=== PATIENT | male | born 1955 | race American Indian/Alaskan Native ===

== ENCOUNTER 2016-06-12 09:31 | Outpatient (CLI) | payer OTHER ==
[2016-06-12] MEDS ORDERED: XYLOCAINE TOPICAL 4% TP ONE ×3 (09:41→14:11)
== END 2016-06-12 09:32 | disposition home or self-care (01) ==
LOC: WOUND 09:31
PROVIDERS: ATTEND Nurse Practitioner
DX: E11.621 Type 2 diabetes mellitus with foot ulcer (principal); L97.521 Non-pressure chronic ulcer of other part of left foot limited to breakdown of skin; L97.511 Non-pressure chronic ulcer of other part of right foot limited to breakdown of skin; I89.0 Lymphedema, not elsewhere classified; E11.22 Type 2 diabetes mellitus with diabetic chronic kidney disease; I12.9 Hypertensive chronic kidney disease with stage 1 through stage 4 chronic kidney disease, or unspecified chronic kidney disease; N18.4 Chronic kidney disease, stage 4 (severe); M19.90 Unspecified osteoarthritis, unspecified site
CPT/HCPCS: 11042; G0463

== ENCOUNTER 2016-06-19 10:00 | Outpatient (CLI) | payer OTHER | END 2016-06-19 10:01 | disposition home or self-care (01) | LOC: WOUND 10:00 | PROVIDERS: ATTEND Nurse Practitioner | DX: I87.323 Chronic venous hypertension (idiopathic) with inflammation of bilateral lower extremity (principal); E11.621 Type 2 diabetes mellitus with foot ulcer; L97.511 Non-pressure chronic ulcer of other part of right foot limited to breakdown of skin; I89.0 Lymphedema, not elsewhere classified; F15.90 Other stimulant use, unspecified, uncomplicated; E11.22 Type 2 diabetes mellitus with diabetic chronic kidney disease; I13.10 Hypertensive heart and chronic kidney disease without heart failure, with stage 1 through stage 4 chronic kidney disease, or unspecified chronic kidney disease; N18.4 Chronic kidney disease, stage 4 (severe); Z72.89 Other problems related to lifestyle | CPT/HCPCS: 99214; G0463 ==

== ENCOUNTER 2016-09-01 12:55 | Outpatient (CLI) | payer OTHER ==
[2016-09-01] MEDS ORDERED: XYLOCAINE TOPICAL 4% TP ONE (13:41)
== END 2016-09-01 12:56 | disposition home or self-care (01) ==
LOC: WOUND 12:55
PROVIDERS: ATTEND Internal Medicine
DX: T81.31XA Disruption of external operation (surgical) wound, not elsewhere classified, initial encounter (principal); E11.622 Type 2 diabetes mellitus with other skin ulcer; I87.312 Chronic venous hypertension (idiopathic) with ulcer of left lower extremity; L97.821 Non-pressure chronic ulcer of other part of left lower leg limited to breakdown of skin; I87.2 Venous insufficiency (chronic) (peripheral); I89.0 Lymphedema, not elsewhere classified; N40.1 Benign prostatic hyperplasia with lower urinary tract symptoms; E11.22 Type 2 diabetes mellitus with diabetic chronic kidney disease; I12.9 Hypertensive chronic kidney disease with stage 1 through stage 4 chronic kidney disease, or unspecified chronic kidney disease; N18.4 Chronic kidney disease, stage 4 (severe); Y83.8 Other surgical procedures as the cause of abnormal reaction of the patient, or of later complication, without mention of misadventure at the time of the procedure
CPT/HCPCS: 11042; 87075; 87116; 97597; G0463

== ENCOUNTER 2016-09-08 10:47 | Outpatient (CLI) | payer OTHER ==
[2016-09-08] MEDS ORDERED: XYLOCAINE TOPICAL 4% TP ONE ×2 (12:08→12:11)
== END 2016-09-08 10:48 | disposition home or self-care (01) ==
LOC: WOUND 10:47
PROVIDERS: ATTEND Internal Medicine
DX: T81.89XD Other complications of procedures, not elsewhere classified, subsequent encounter (principal); I87.312 Chronic venous hypertension (idiopathic) with ulcer of left lower extremity; E11.622 Type 2 diabetes mellitus with other skin ulcer; L97.821 Non-pressure chronic ulcer of other part of left lower leg limited to breakdown of skin; E11.22 Type 2 diabetes mellitus with diabetic chronic kidney disease; I12.9 Hypertensive chronic kidney disease with stage 1 through stage 4 chronic kidney disease, or unspecified chronic kidney disease; N18.4 Chronic kidney disease, stage 4 (severe); Z72.89 Other problems related to lifestyle; Y83.8 Other surgical procedures as the cause of abnormal reaction of the patient, or of later complication, without mention of misadventure at the time of the procedure

== ENCOUNTER 2016-09-15 10:50 | Outpatient (CLI) | payer OTHER ==
[2016-09-15] MEDS ORDERED: XYLOCAINE TOPICAL 4% TP ONE ×2 (11:18)
[2016-09-15] MEDS ORDERED: SILVER NITRATE TP ONE ×2 (11:52→16:20)
== END 2016-09-15 10:51 | disposition home or self-care (01) ==
LOC: WOUND 10:50
PROVIDERS: ATTEND Internal Medicine
DX: T81.89XD Other complications of procedures, not elsewhere classified, subsequent encounter (principal); I87.312 Chronic venous hypertension (idiopathic) with ulcer of left lower extremity; E11.622 Type 2 diabetes mellitus with other skin ulcer; L97.821 Non-pressure chronic ulcer of other part of left lower leg limited to breakdown of skin; E11.22 Type 2 diabetes mellitus with diabetic chronic kidney disease; I12.9 Hypertensive chronic kidney disease with stage 1 through stage 4 chronic kidney disease, or unspecified chronic kidney disease; N18.4 Chronic kidney disease, stage 4 (severe); I89.0 Lymphedema, not elsewhere classified; Y83.8 Other surgical procedures as the cause of abnormal reaction of the patient, or of later complication, without mention of misadventure at the time of the procedure

== ENCOUNTER 2016-09-22 12:17 | Outpatient (CLI) | payer OTHER ==
[2016-09-22] MEDS ORDERED: XYLOCAINE TOPICAL 4% TP ONE ×2 (14:28→14:37)
== END 2016-09-22 12:18 | disposition home or self-care (01) ==
LOC: WOUND 12:17
PROVIDERS: ATTEND Internal Medicine
DX: T81.89XD Other complications of procedures, not elsewhere classified, subsequent encounter (principal); I87.312 Chronic venous hypertension (idiopathic) with ulcer of left lower extremity; L97.821 Non-pressure chronic ulcer of other part of left lower leg limited to breakdown of skin; E11.22 Type 2 diabetes mellitus with diabetic chronic kidney disease; I12.9 Hypertensive chronic kidney disease with stage 1 through stage 4 chronic kidney disease, or unspecified chronic kidney disease; N18.4 Chronic kidney disease, stage 4 (severe); I89.0 Lymphedema, not elsewhere classified; I10 Essential (primary) hypertension; M17.9 Osteoarthritis of knee, unspecified; Y83.8 Other surgical procedures as the cause of abnormal reaction of the patient, or of later complication, without mention of misadventure at the time of the procedure

== ENCOUNTER 2016-09-29 12:58 | Outpatient (CLI) | payer OTHER ==
[2016-09-29] MEDS ORDERED: XYLOCAINE TOPICAL 2% TP ONE (13:20)
[2016-09-29] MEDS ORDERED: XYLOCAINE TOPICAL 4% TP ONE (13:46)
== END 2016-09-29 12:59 | disposition home or self-care (01) ==
LOC: WOUND 12:58
PROVIDERS: ATTEND Internal Medicine
DX: T81.89XD Other complications of procedures, not elsewhere classified, subsequent encounter (principal); I87.312 Chronic venous hypertension (idiopathic) with ulcer of left lower extremity; N40.1 Benign prostatic hyperplasia with lower urinary tract symptoms; I87.2 Venous insufficiency (chronic) (peripheral); I50.9 Heart failure, unspecified; I89.0 Lymphedema, not elsewhere classified; E11.22 Type 2 diabetes mellitus with diabetic chronic kidney disease; I12.9 Hypertensive chronic kidney disease with stage 1 through stage 4 chronic kidney disease, or unspecified chronic kidney disease; N18.4 Chronic kidney disease, stage 4 (severe); Y83.8 Other surgical procedures as the cause of abnormal reaction of the patient, or of later complication, without mention of misadventure at the time of the procedure
CPT/HCPCS: 29581

== ENCOUNTER 2016-10-06 12:58 | Outpatient (CLI) | payer OTHER ==
[2016-10-06] MEDS ORDERED: XYLOCAINE TOPICAL 4% TP ONE ×2 (13:22→14:00)
== END 2016-10-06 12:59 | disposition home or self-care (01) ==
LOC: WOUND 12:58
PROVIDERS: ATTEND Internal Medicine
DX: T81.89XD Other complications of procedures, not elsewhere classified, subsequent encounter (principal); I87.312 Chronic venous hypertension (idiopathic) with ulcer of left lower extremity; L97.821 Non-pressure chronic ulcer of other part of left lower leg limited to breakdown of skin; E11.22 Type 2 diabetes mellitus with diabetic chronic kidney disease; I12.9 Hypertensive chronic kidney disease with stage 1 through stage 4 chronic kidney disease, or unspecified chronic kidney disease; N18.4 Chronic kidney disease, stage 4 (severe); I89.0 Lymphedema, not elsewhere classified; M17.9 Osteoarthritis of knee, unspecified; Y83.8 Other surgical procedures as the cause of abnormal reaction of the patient, or of later complication, without mention of misadventure at the time of the procedure

== ENCOUNTER 2016-10-13 13:02 | Outpatient (CLI) | payer OTHER ==
[2016-10-13] MEDS ORDERED: XYLOCAINE TOPICAL 4% TP ONE ×2 (13:34→13:49)
== END 2016-10-13 13:03 | disposition home or self-care (01) ==
LOC: WOUND 13:02
PROVIDERS: ATTEND Internal Medicine
DX: T81.89XD Other complications of procedures, not elsewhere classified, subsequent encounter (principal); I87.312 Chronic venous hypertension (idiopathic) with ulcer of left lower extremity; L97.821 Non-pressure chronic ulcer of other part of left lower leg limited to breakdown of skin; E11.22 Type 2 diabetes mellitus with diabetic chronic kidney disease; I12.9 Hypertensive chronic kidney disease with stage 1 through stage 4 chronic kidney disease, or unspecified chronic kidney disease; N18.4 Chronic kidney disease, stage 4 (severe); I89.0 Lymphedema, not elsewhere classified; Y83.8 Other surgical procedures as the cause of abnormal reaction of the patient, or of later complication, without mention of misadventure at the time of the procedure
CPT/HCPCS: 93970

== ENCOUNTER 2016-10-13 14:35 | Outpatient (CLI) | payer OTHER ==
--- NOTE | 2016-10-14 16:05 | Vascular Lab Report ---
LOWER EXTREMITY VENOUS DUPLEX: REASON FOR EXAM: Pain of the lower extremities. COMMENTS ON THE RIGHT: All veins visualized are freely compressible without evidence of internal echogenicity. Flow is spontaneous and phasic throughout. COMMENTS ON THE LEFT: All veins visualized are freely compressible without evidence of internal echogenicity. Flow is spontaneous and phasic throughout. IMPRESSION: No evidence of acute or chronic deep venous thrombosis in either lower extremity.
== END 2016-10-13 14:36 | disposition home or self-care (01) ==
LOC: VAS 14:35
PROVIDERS: ATTEND Internal Medicine
DX: M79.604 Pain in right leg (principal); M79.605 Pain in left leg; I10 Essential (primary) hypertension; E11.9 Type 2 diabetes mellitus without complications; N17.9 Acute kidney failure, unspecified; D64.9 Anemia, unspecified
CPT/HCPCS: 93970

== ENCOUNTER 2016-10-20 13:04 | Outpatient (CLI) | payer OTHER ==
[2016-10-20] MEDS ORDERED: XYLOCAINE TOPICAL 2% TP ONE ×2 (13:48)
== END 2016-10-20 13:05 | disposition home or self-care (01) ==
LOC: WOUND 13:04
PROVIDERS: ATTEND Internal Medicine
DX: T81.89XD Other complications of procedures, not elsewhere classified, subsequent encounter (principal); I87.312 Chronic venous hypertension (idiopathic) with ulcer of left lower extremity; L97.821 Non-pressure chronic ulcer of other part of left lower leg limited to breakdown of skin; E11.622 Type 2 diabetes mellitus with other skin ulcer; E11.22 Type 2 diabetes mellitus with diabetic chronic kidney disease; I12.9 Hypertensive chronic kidney disease with stage 1 through stage 4 chronic kidney disease, or unspecified chronic kidney disease; N18.4 Chronic kidney disease, stage 4 (severe); I89.0 Lymphedema, not elsewhere classified; Y83.8 Other surgical procedures as the cause of abnormal reaction of the patient, or of later complication, without mention of misadventure at the time of the procedure

== ENCOUNTER 2016-10-20 14:44 | Inpatient (IN) | payer OTHER ==
--- NOTE | 2016-10-20 15:32 | Emergency Department Report ---
Chief Complaint: Dyspnea/Respdistress Stated Complaint: REF BY WOUND CARE/ABD SWELLING/SOB Time Seen by Provider: 10/20/16 15:30 - HPI History of Present Illness: pt states he was at the wound care center and he was found to be SOB. PT sent to ED for eval - ROS Review of Systems: + lower ext edema + sob - Exam Physical Exam: + ble edema. dressing to LLE MSE screening note: Focused history and physical exam performed. Due to findings the following was ordered: labs, ekg, xr chest ED Disposition for MSE Condition: Stable
[2016-10-20 15:54] LABS: Basophils % (Auto) 0.9 % (0.0-1.8); Eosinophils % (Auto) 2.4 % (0.0-4.3); Hematocrit 22.5 % (35.5-45.6); Hemoglobin 7.1 gm/dl (11.8-15.2); Mean Corpuscular HGB Conc 32 % (32-34); Mean Corpuscular Volume 81 fl (84-94); Platelet Count 193 K/mm3 (140-440); Red Blood Count 2.77 M/mm3 (3.65-5.03); White Blood Count 9.4 K/mm3 (4.5-11.0)
[2016-10-20 15:55] LABS: Mean Corpuscular Hemoglobin 26 pg (28-32)
[2016-10-20 16:04] LABS: INR 1.12 (0.87-1.13)
[2016-10-20 16:05] LABS: Partial Thromboplastin Time 31.5 Sec. (24.2-36.6)
[2016-10-20 16:17] LABS: Creatine Kinase MB 2.6 ng/mL (0.0-4.0)
[2016-10-20 16:18] LABS: Albumin 3.2 g/dL (3.9-5); Albumin/Globulin Ratio 0.9 %; BUN/Creatinine Ratio 17.22; Bilirubin,Total 0.2 mg/dL (0.1-1.2); Calcium 8.6 mg/dL (8.4-10.2); Chloride 105.3 mmol/L (98-107); Potassium 4.7 mmol/L (3.6-5.0); Total Protein 6.8 g/dL (6.3-8.2)
--- NOTE | 2016-10-20 16:24 | XRay Report ---
CHEST 2 VIEWS INDICATION: Dyspnea. COMPARISON: 08/19/2016 FINDINGS: PA and lateral chest radiographs demonstrate stable cardiomediastinal silhouette/mild cardiomegaly. Slight increased bronchovascular prominence centrally may be congestive. No significant pleural effusions. Slight aortic knob calcifications. Demineralized bones with few degenerative changes. CONCLUSION: Cardiomegaly again noted with slight congestion possible, as described. Please correlate. Thank you for the opportunity to participate in this patient's care.
[2016-10-20] MEDS ORDERED: LASIX IV ONE (21:04)
--- NOTE | 2016-10-20 21:09 | Emergency Department Report ---
ED Shortness of Breath HPI - General Chief Complaint: Dyspnea/Respdistress Stated Complaint: REF BY WOUND CARE/ABD SWELLING/SOB Time Seen by Provider: 10/20/16 15:30 Source: patient Mode of arrival: Ambulatory Limitations: No Limitations - History of Present Illness Initial Comments: Patient was sent from his primary care physician office for increased shortness of breath and generalized swelling starting them on for 4 weeks getting worse in the last 2-3 days. Patient does have history of chronic kidney disease and never diagnosed with congestive heart failure. He stated that he's been having shortness of breath when he woke and when he laid down to sleep. Denied any fever nausea or vomiting or diarrhea. MD Complaint: shortness of breath -: Gradual, week(s) Consistency: constant Improves With: rest Worsens With: lying flat, exertion - Related Data Home Medications Medication Instructions Recorded Confirmed Last Taken Acetaminophen/Codeine [Tylenol 1 tab PO QDAY 08/11/16 08/11/16 Unknown /Codeine # 3 tab] Furosemide [Lasix TAB] 40 mg PO BID 08/11/16 08/11/16 Unknown Insulin Glargine,Hum.rec.anlog 60 units SC QHS 08/11/16 08/11/16 Unknown [Lantus Solostar] Naproxen [Naprosyn TAB] 500 mg PO BID 08/11/16 08/11/16 Unknown Valsartan [Diovan] 320 mg PO QDAY 08/11/16 08/11/16 Unknown Previous Rx's Medication Instructions Recorded Last Taken Type Atenolol [Tenormin] 25 mg PO QDAY #30 tablet 08/19/16 Unknown Rx Bisacodyl [Dulcolax suppos] 10 mg [place] QDAY PRN #30 supp.rect 08/19/16 Unknown Rx Clonidine HCl [Kapvay] 0.2 mg PO TID #90 tab.er.12h 08/19/16 Unknown Rx Ferrous Sulfate [Feosol 325 MG tab] 325 mg PO BID #60 tablet 08/19/16 Unknown Rx Metolazone [Zaroxolyn] 5 mg PO Q48H #15 tablet 08/19/16 Unknown Rx NIFEdipine [Nifedipine ER] 60 mg PO QDAY #30 tab.er.24 08/19/16 Unknown Rx Polyethylene Glycol 3350 [Miralax 17 gm PO QDAY PRN #30 powd.pack 08/19/16 Unknown Rx 3350] hydrALAZINE [Apresoline TAB] 100 mg PO TID #90 tab 08/19/16 Unknown Rx oxyCODONE /ACETAMINOPHEN [Percocet 1 tab PO Q4HR #25 tab 08/19/16 Unknown Rx 5/325] Allergies Allergy/AdvReac Type Severity Reaction Status Date / Time No Known Allergies Allergy Unverified 03/09/15 08:34 ED Review of Systems ROS: Stated complaint: REF BY WOUND CARE/ABD SWELLING/SOB Other details as noted in HPI Comment: All other systems reviewed and negative Constitutional: denies: chills, fever Respiratory: cough, orthopnea, shortness of breath, SOB with exertion, SOB at rest. denies: stridor Cardiovascular: dyspnea on exertion, orthopnea, edema. denies: chest pain, palpitations Endocrine: denies: excessive sweating, intolerance to cold Neurological: weakness (generalized). denies: headache ED Past Medical Hx - Past Medical History Previous Medical History?: Yes Hx Hypertension: Yes (multiple meds on cardene in hosp; labetolol given as needed) Hx Diabetes: Yes Hx Renal Disease: Yes (acute renal failure - CKD prior to hospitilization) - Surgical History Past Surgical History?: Yes Hx Appendectomy: Yes - Social History Smoking Status: Never Smoker Substance Use Type: None - Medications Home Medications: Home Medications Medication Instructions Recorded Confirmed Last Taken Type Acetaminophen/Codeine [Tylenol 1 tab PO QDAY 08/11/16 08/11/16 Unknown History /Codeine # 3 tab] Furosemide [Lasix TAB] 40 mg PO BID 08/11/16 08/11/16 Unknown History Insulin Glargine,Hum.rec.anlog 60 units SC QHS 08/11/16 08/11/16 Unknown History [Lantus Solostar] Naproxen [Naprosyn TAB] 500 mg PO BID 08/11/16 08/11/16 Unknown History Valsartan [Diovan] 320 mg PO QDAY 08/11/16 08/11/16 Unknown History Atenolol [Tenormin] 25 mg PO QDAY #30 tablet 08/19/16 Unknown Rx Bisacodyl [Dulcolax suppos] 10 mg [place] QDAY PRN #30 supp.rect 08/19/16 Unknown Rx Clonidine HCl [Kapvay] 0.2 mg PO TID #90 tab.er.12h 08/19/16 Unknown Rx Ferrous Sulfate [Feosol 325 MG tab] 325 mg PO BID #60 tablet 08/19/16 Unknown Rx Metolazone [Zaroxolyn] 5 mg PO Q48H #15 tablet 08/19/16 Unknown Rx NIFEdipine [Nifedipine ER] 60 mg PO QDAY #30 tab.er.24 08/19/16 Unknown Rx Polyethylene Glycol 3350 [Miralax 17 gm PO QDAY PRN #30 powd.pack 08/19/16 Unknown Rx 3350] hydrALAZINE [Apresoline TAB] 100 mg PO TID #90 tab 08/19/16 Unknown Rx oxyCODONE /ACETAMINOPHEN [Percocet 1 tab PO Q4HR #25 tab 08/19/16 Unknown Rx 5/325] ED Physical Exam - General Limitations: No Limitations General appearance: alert, in no apparent distress - Neck Neck exam: Present: normal inspection - Respiratory Respiratory exam: Present: rales, decreased breath sounds. Absent: respiratory distress, wheezes, rhonchi, stridor - Cardiovascular Cardiovascular Exam: Present: regular rate, normal rhythm, normal heart sounds - GI/Abdominal GI/Abdominal exam: Present: soft. Absent: distended, tenderness, guarding, rebound, normal bowel sounds - Back Exam Back exam: Present: normal inspection - Neurological Exam Neurological exam: Present: alert, oriented X3, CN II-XII intact, normal gait, reflexes normal. Absent: motor sensory deficit - Skin Skin exam: Present: warm, normal color ED Course Vital Signs 10/20/16 10/20/16 15:31 21:09 Temperature 97.8 F Pulse Rate 51 L Respiratory 16 18 Rate Blood Pressure 135/64 O2 Sat by Pulse 97 Oximetry - Reevaluation(s) Reevaluation #1: 10/20/16 21:[address] Paz for admission. 10/20/16 21:27 ED Medical Decision Making - Lab Data Result diagrams: 10/20/16 15:38 10/20/16 15:38 - EKG Data EKG shows normal: sinus rhythm Rate: normal - EKG Data Interpretation: no acute changes - Radiology Data Radiology results: report reviewed Pulmonary congestion Critical care attestation.: If time is entered above; I have spent that time in minutes in the direct care of this critically ill patient, excluding procedure time. ED Disposition Clinical Impression: Volume overload Disposition: 09 OP ADMIT IP TO THIS HOSP Is pt being admited?: Yes Condition: Stable Referrals: PRIMARY CARE, [Primary Care Provider] - 3-5 Days
[2016-10-20] MEDS ORDERED: MORPHINE IV PRN (22:03)
[2016-10-20] MEDS ORDERED: NITROSTAT SL PRN (22:03)
[2016-10-20] MEDS ORDERED: MIRALAX 3350 PO PRN (22:07)
[2016-10-20] MEDS ORDERED: DULCOLAX PR PRN (22:07)
[2016-10-20] MEDS ORDERED: D50W (25GM) Syringe IV PRN (22:25)
[2016-10-20] MEDS: COREG PO SCH (23:28)
[2016-10-20] MEDS: APRESOLINE PO SCH (23:28)
[2016-10-20] MEDS: CATAPRES PO SCH (23:29)
[2016-10-20] MEDS: HEPARIN SUB-Q SCH (23:30)
[2016-10-20] MEDS: NITRO-BID 2% TP SCH (23:30)
[2016-10-20] MEDS: LEVEMIR SUB-Q SCH (23:37)
--- NOTE | 2016-10-21 00:24 | History and Physical Report ---
CHIEF COMPLAINT: Shortness of breath. Other complaint includes generalized body swelling. HISTORY OF PRESENT ILLNESS: The patient is a 61-year-old male, who recently had appendectomy done and went for wound care and was sent over because of generalized body swelling. Also, the patient said his swelling has been going on for 4 weeks and recently, the patient started having shortness of breath in the last 2-3 days and denied history of chest pain. Denied history of cough, fever, or chills and also the patient denies history of nausea or vomiting and said that the generalized body swelling involves more of the lower extremities than any other part of the body. The patient has been taking Lasix by mouth and also metolazone for this increased swelling. PAST MEDICAL HISTORY: Pertinent for chronic kidney disease, hypertension, and diabetes mellitus. Also, the patient has past medical history of sleep apnea. PAST SURGICAL HISTORY: Pertinent for appendectomy. FAMILY HISTORY: Noncontributory. SOCIAL HISTORY: The patient does not smoke, does not drink alcohol and does not use illicit drugs. MEDICATIONS: The patient is on Tylenol by mouth daily, furosemide or Lasix 40 mg by mouth twice daily, Lantus insulin 60 units subQ at bedtime, naproxen 500 mg by mouth twice daily, Diovan or valsartan 320 mg by mouth daily, atenolol 25 mg by mouth daily, Dulcolax suppository 10 mg 1 per rectum daily, clonidine 0.2 mg p.o. t.i.d., ferrous sulfate 325 mg p.o. b.i.d., metolazone, Zaroxolyn 5 mg p.o. q.48 hours, nifedipine 60 mg p.o. daily, polyethylene glycol 17 grams p.o. daily, hydralazine 100 mg p.o. t.i.d., Percocet or oxycodone/acetaminophen 5/325 one by mouth every 4 hours as needed for pain. ALLERGIES: There are no known drug allergies. REVIEW OF SYSTEMS: CONSTITUTIONAL: There is no fever, no chills, no diaphoresis. HEENT: There is no headache or sore throat. CARDIOVASCULAR: There is no chest pain or orthopnea. RESPIRATORY: Shortness of breath present. No cough. GASTROINTESTINAL: No nausea, no vomiting, no abdominal pain, diarrhea or constipation. NEUROLOGICAL: There is no numbness, no dizziness, no altered mental status. MUSCULOSKELETAL: There is swelling of the whole body, more in the lower extremities involving the joint. There is no joint pain. DERMATOLOGICAL: There is no skin rash or itching. GENITOURINARY: There is a history of dysuria, but no hematuria or flank pain. Rest of system review is normal. PHYSICAL EXAMINATION: GENERAL: At the time of exam, the patient was found to be alert, oriented x 3 and not in acute distress. VITAL SIGNS: Shows temperature of 98.1, pulse of 66, respirations of 16, blood pressure 189/75, and O2 sat of 97% on room air. HEENT: Showed pupils to be equal, round, reactive to light and accommodation. Extraocular muscles are intact. NECK: Supple with no JVD or carotid bruit. CARDIOVASCULAR SYSTEM: Show first and second heart sounds with no gallops or murmur. EXTREMITIES: The patient has 2+ pitting edema. RESPIRATORY: Show good air entry on both sides of the lung with bibasilar rales. GASTROINTESTINAL SYSTEM: Show abdomen to be full, soft, nontender with no organomegaly or rigidity. NEUROLOGIC: Shows no focal deficit. MUSCULOSKELETAL: Show swelling of the whole body, especially in the lower extremities with no joint tenderness. DERMATOLOGICAL SYSTEM: Show no skin rash. GENITOURINARY: Show no costovertebral angle tenderness. PERTINENT LABORATORY AND IMAGING STUDIES: The patient had CBC done that shows normal white count with low hemoglobin of 7.1 and low hematocrit of 22.5 with low MCV of 81. CBC differential showed elevated segmented neutrophils of 74.1%. Coagulation study show slightly elevated PT of 15 with normal INR. Chemistry shows normal sodium, normal potassium, elevated BUN of 62 with elevated creatinine of 3.6. The patient's troponin level was high with a value of 0.049 and a second troponin showed a slight downward trend of 0.047. Brain natriuretic peptide is high with a value of 1954. IMAGING STUDIES: The patient had chest x-ray done that shows pulmonary congestion. DIAGNOSES: 1. Congestive heart failure. 2. Chronic kidney disease. 3. Elevated troponin level. 4. Anemia. PLAN: The patient will be admitted to medical floor on telemetry. We will have cardiac enzymes checked q. 6 hours x 2 more levels. The patient will have 2D echo done in the morning and will be admitted using CHF pathway. He will be on IV Lasix 40 mg daily. The patient will have packed red blood cells typed and screened and will have CBC checked in the morning as well as basic metabolic panel checked in the morning. The patient will have Nephrology consult with his part maker, Dr. Hearn in the morning and will be on nitro paste 1 inch to anterior chest wall q.6 hours. The patient will be on aspirin 81 mg by mouth daily and will be on oxygen by nasal cannula at 2 liter per minute. The patient's DVT prophylaxis will be through subcutaneous heparin 5000 units q.12 hours. The patient will have his home medications reconciled and started. The patient will be on Accu-Chek a.c. and at bedtime, followed by low dose sliding scale and also will be on restrictive carbohydrate diet and 2 g sodium diet. JOB# [id number] OCN/APRYL ERNST
[2016-10-21 01:15] LABS: Creatine Kinase MB 2.5 ng/mL (0.0-4.0)
[2016-10-21] MEDS: NITRO-BID 2% TP SCH ×4 (05:39→18:00)
[2016-10-21 06:37] LABS: Hemoglobin 7.5 gm/dl (11.8-15.2); Mean Corpuscular HGB Conc 31 % (32-34); Mean Corpuscular Volume 82 fl (84-94); Platelet Count 207 K/mm3 (140-440); Red Blood Count 2.95 M/mm3 (3.65-5.03); White Blood Count 10.2 K/mm3 (4.5-11.0)
[2016-10-21 06:38] LABS: Mean Corpuscular Hemoglobin 26 pg (28-32); Red Cell Distribution Width 20.6 % (13.2-15.2)
--- NOTE | 2016-10-21 07:51 | Admit Criteria Form ---
Admission Criteria Documentation: RESPIRATORY FAILURE GRG Clinical Indications for Admission to Inpatient Care (Place 'X' for any and all applicable criteria): Hospital admission is needed for appropriate care of the patient because of acute respiratory failure or insufficiency as indicated by 1 or more of the following (1)(2)(3)(4)(5)(6)(7)(8 ): [X ]I. Mechanical ventilation needed (acute invasive or noninvasive) [ ]II. Severe ventilation deficit as indicated by 1 or more of the following ( 9) [ ]a) Uncompensated Respiratory acidosis (pH < 7.35 and PaCO2 > 40 mmHg (5.3 kPa)) [ ]b) Airflow measurements < 25% of predicted (eg, PEFR < 100 L/min) [ ]c) FVC < 15 mL/kg of ideal body weight, or 50% decrease in vital capacity from baseline [ ]III. Noncardiac pulmonary edema not resolving with rapid emergency treatment (8) [ ]IV. Severe respiratory distress as indicated by 1 or more of the following: [ ]a) Severe tachypnea (respiratory rate greater than 30, greater than 45 for 6-month-old, greater than 60 for ) [ ]b) Severe hypoxemia (partial pressure of oxygen less than 50 mm Hg ( 6.7 kPa) on greater than 50% oxygen or partial pressure of oxygen to FIO2 ratio less than 200) [ ]c) Mental status deterioration from respiratory disease [ ]V. Airway obstruction or inadequate protection [A](10)(11) The original [employer] content created by [employer] has been revised. The portions of the content which have been revised are identified through the use of italic text or in bold, and [employer] has neither reviewed nor approved the modified material. All other unmodified content is copyright [employer]. Please see references footnoted in the original [employer] edition 2017 Admission Criteria Met: Yes
[2016-10-21] MEDS ORDERED: CLONIDINE HCL 0.2 MG PO SCH (08:00)
[2016-10-21 08:15] LABS: BUN/Creatinine Ratio 18.75; Calcium 8.6 mg/dL (8.4-10.2); Chloride 107.1 mmol/L (98-107); Potassium 4.5 mmol/L (3.6-5.0)
[2016-10-21] MEDS: ULTRAM PO SCH ×3 (08:33→22:31)
[2016-10-21] MEDS: APRESOLINE PO SCH ×3 (08:33→20:49)
[2016-10-21] MEDS: CATAPRES PO SCH ×3 (08:33→20:49)
--- NOTE | 2016-10-21 09:57 | Consultation ---
History of Present Illness - History of Present Illness Thank you for the consultation Patient was evaluated today Assessment and plan Advanced renal failure. The patient is currently being followed in our clinic by Dr. Nielson patient likely appears to have stage IV chronic kidney disease presenting with significant swelling, edema, which has been worsening./Patient has been noted to have very poor diet and lifestyle which needs to be changed. There is no acute emergent indication for renal replacement therapy here moderately severe anemia patient does require full workup including iron profile B12 folic acid reticulocyte count and erythropoietin injection, He may also benefit from hematology evaluation and packed red blood cell transfusion Creatinine is currently better than his previous visit Anasarca-like picture.would like to diurese as tolerated. Follow We'll assess the degree of proteinuria and his case Moderately severe anemia likely due to chronic kidney disease. However, this needs to be further worked up. He will also benefit from hematology evaluation Metabolic acidosis Ejection fraction has been in the range of 65-70% We'll continue to follow and make recommendation from renal standpoint History of presenting illness: Patient is a pleasant 61-year-old -[place] male who is currently being followed by Dr. Nielson in the office. Patient has known history of chronic kidney disease likely stage IV creatinine currently is better than his previous visit. The patient does not recall the degree of proteinuria that he had in the past. His eating habits have an extremely poor.. Patient does not use any follow-up nonsteroidal drug a follow-up BC goodies. Denies any history of hepatitis B C HIV lupus etc.. Leg swelling has been getting worse to the point it is also getting short of breath. Above symptoms have been present for last 4- 5 weeks but possibly did get worse and last 4-5 day. Upon admission creatinine was 3.6 with the [place] of 62 hemoglobin 7.1 with hematocrit 22.5 bicarbonate was around 20 blood pressure was around 130s systolic with pulse rate in 50s. Ejection fraction (the range of 60-65%. She is also currently being followed by wound clinic Past medical history is significant for: hypertension Chronic kidney disease Edema Congestive heart failure Leg wound sleep apnea Current allergies:no known allergies Home medication present medications: Reviewed Social history:denies any history of alcohol drug tobacco use Family history:denies any history of renal failure Review of system positive for progressive weakness and lies swelling fatigue and chest discomfort shortness of breath Other review of systems were negative Physical examination Vitals: Reviewed from this admission General: No acute distress HEENT: Oral mucosa moist no uremic order mild pallor no icterus Neck: No thyromegaly nodular mass or JVD noted Chest: bilateral crackles and wheezes Heart: Regular rhythm S1-S2 heard no S3-S4 Abdomen: Nontender no organomegaly no masses no renal bruit no suprapubic masses noted Extremities: 2+ generalized edema No peripheral cyanosis dry skin pulses palpable Endocrine: No thyromegaly noted Psych; no agitation or aggression noted Back: Nontender thoracolumbar spine Musculoskeletal: No joint effusion noted Neurological: Alert awake follows commands higher function including speech memory thought cognition within normal limits Labs and x-rays: All were reviewed from this admission on chart today Assessment and plan; Patient was adequately counseled and educated regarding all the renal related issues All questions were answered pertinent to renal care Thank you for the consultation, we will continue to follow and make recommendation from renal standpoint Medications and Allergies Allergies Allergy/AdvReac Type Severity Reaction Status Date / Time No Known Allergies Allergy Unverified 03/09/15 08:34 Home Medications Medication Instructions Recorded Confirmed Last Taken Type Acetaminophen/Codeine [Tylenol 1 tab PO QDAY 08/11/16 10/20/16 Unknown History /Codeine # 3 tab] Furosemide [Lasix TAB] 40 mg PO BID 08/11/16 10/20/16 Unknown History Insulin Glargine,Hum.rec.anlog 60 units SC QHS 08/11/16 10/20/16 Unknown History [Lantus Solostar] Naproxen [Naprosyn TAB] 500 mg PO BID 08/11/16 10/20/16 Unknown History Valsartan [Diovan] 320 mg PO QDAY 08/11/16 10/20/16 Unknown History Atenolol [Tenormin] 25 mg PO QDAY #30 tablet 08/19/16 10/20/16 Unknown Rx Bisacodyl [Dulcolax suppos] 10 mg [place] QDAY PRN #30 supp.rect 08/19/16 10/20/16 Unknown Rx Clonidine HCl [Kapvay] 0.2 mg PO TID #90 tab.er.12h 08/19/16 10/20/16 Unknown Rx Ferrous Sulfate [Feosol 325 MG tab] 325 mg PO BID #60 tablet 08/19/16 10/20/16 Unknown Rx Metolazone [Zaroxolyn] 5 mg PO Q48H #15 tablet 08/19/16 10/20/16 Unknown Rx Polyethylene Glycol 3350 [Miralax 17 gm PO QDAY PRN #30 powd.pack 08/19/1610/20 Unknown Rx 3350] hydrALAZINE [Apresoline TAB] 100 mg PO TID #90 tab 08/19/16 10/20/16 Unknown Rx oxyCODONE /ACETAMINOPHEN [Percocet 1 tab PO Q4HR #25 tab 08/19/16 10/20/16 Unknown Rx 5/325] Ascorbic Acid [Vitamin C] 500 mg PO QDAY 10/20/16 10/20/16 Unknown History AtorvaSTATin [Lipitor] 20 mg PO QDAY 10/20/16 10/20/16 Unknown History Cholecalciferol (Vitamin D3) 2,000 units PO QDAY 10/20/16 10/20/16 Unknown History [Vitamin D3 2,000 unit] Multivit-Min/Iron/FA/Ginseng [Ra 1 tab PO QDAY 10/20/16 10/20/16 Unknown History [employer] Tablet] NIFEdipine XL [Procardia Xl] 90 mg PO QDAY 10/20/16 10/20/16 Unknown History Tamsulosin [Flomax] 0.4 mg PO QDAY 10/20/16 10/20/16 Unknown History Zinc Acetate [Galzin] 50 mg PO QDAY 10/20/16 10/20/16 Unknown History traMADol [Ultram 50 MG tab] 50 mg PO TID 10/20/16 10/20/16 Unknown History Active Meds: Active Medications Ascorbic Acid (Vitamin C) 500 mg PO QDAY [facility] Aspirin (Baby Aspirin) 81 mg PO QDAY [facility] Atorvastatin Calcium (Lipitor) 20 mg PO QDAY [facility] Bisacodyl (Dulcolax) 10 mg [place] QDAY PRN PRN Reason: constipation unrelieved by MOM Carvedilol (Coreg) 3.125 mg PO BID [facility] Last Admin: 10/20/16 23:28 Dose: 3.125 mg Cholecalciferol (Vitamin D3) 2,000 unit PO QDAY [facility] Clonidine HCl (Catapres) 0.2 mg PO TID [facility] Last Admin: 10/21/16 08:33 Dose: 0.2 mg Dextrose (D50w (25gm)) 50 ml IV PRN PRN PRN Reason: Hypoglycemia Ferrous Sulfate (Feosol) 325 mg PO BID [facility] Furosemide (Lasix) 40 mg IV QDAY [facility] Heparin Sodium (Porcine) (Heparin) 5,000 unit SUB-Q Q12HR [facility] Last Admin: 10/20/16 23:30 Dose: 5,000 unit Hydralazine HCl (Apresoline) 100 mg PO TID [facility] Last Admin: 10/21/16 08:33 Dose: 100 mg Insulin Detemir (Levemir) 60 units SUB-Q QHS [facility] Last Admin: 10/20/16 23:37 Dose: 60 units Insulin Human Regular (Novolin R) 0 units SUB-Q AC [facility] PRN Reason: Protocol Last Admin: 10/21/16 08:34 Dose: Not Given Insulin Human Regular (Novolin R) 0 units SUB-Q QHS [facility] PRN Reason: Protocol Metolazone (Zaroxolyn) 5 mg PO Q48HR [facility] Morphine Sulfate (Morphine) 2 mg IV Q5MIN PRN PRN Reason: Chest Pain Nitroglycerin (Nitrostat) 0.4 mg SL .Q5MIN PRN PRN Reason: Chest Pain Nitroglycerin (Nitro-Bid 2%) 1 inch TP QIDNTG [facility] PRN Reason: Protocol Last Admin: 10/21/16 05:39 Dose: 1 inch Polyethylene Glycol (Miralax 3350) 17 gm PO QDAY PRN PRN Reason: Constipation Tamsulosin HCl (Flomax) 0.4 mg PO QDAY [facility] Tramadol HCl (Ultram) 50 mg PO TID [facility] Last Admin: 10/21/16 08:33 Dose: 50 mg Valsartan (Diovan) 320 mg PO QDAY [facility] Exam - Vital Signs Vital signs: Vital Signs Temp Pulse Resp BP Pulse Ox 97.8 F 51 L 16 135/64 97 10/20/16 15:31 10/20/16 15:31 10/20/16 15:31 10/20/16 15:31 10/20/16 15:31 Results - Lab Results 10/21/16 06:21 10/21/16 06:21 Most recent lab results Calcium 8.6 mg/dL (8.4-10.2) 10/21/16 06:21
[2016-10-21] MEDS ORDERED: NON-FORMULARY (Valsartan [Diovan] 320 MG) PO SCH (10:00)
[2016-10-21] MEDS ORDERED: CHOLECALCIFEROL 2000 UNIT PO SCH (10:00)
[2016-10-21] MEDS: FEOSOL PO SCH ×2 (10:18→22:31)
[2016-10-21] MEDS: BABY ASPIRIN PO SCH (10:19)
[2016-10-21] MEDS: VITAMIN D3 PO SCH (10:19)
[2016-10-21] MEDS: DIOVAN PO SCH (10:19)
[2016-10-21] MEDS: COREG PO SCH ×2 (10:19→22:32)
[2016-10-21] MEDS: ZAROXOLYN PO SCH (10:19)
[2016-10-21] MEDS: LASIX IV SCH (10:20)
[2016-10-21] MEDS: FLOMAX PO SCH (10:20)
[2016-10-21] MEDS: VITAMIN C PO SCH (10:20)
[2016-10-21] MEDS: HEPARIN SUB-Q SCH ×2 (10:20→22:33)
--- NOTE | 2016-10-21 12:47 | Progress Note ---
Assessment and Plan Assessment and plan: Acute diastolic heart failure. On Coreg, Erika and Xi, cardiology following Chronic kidney disease. Nephrology following Diabetes mellitus type 2. Check fingerstick glucose Qac and hs Hypertension. Monitor Sleep apnea. CPAP QHS Morbid obesity. I counseled him on losing weight Anemia Elevated Troponin. Will monitor. Cardiology following Full code status History Interval history: Less shortness of breath, leg swelling no chest pain Hospitalist Physical - Physical exam Narrative exam: Gen appearance: Not in acute distress, morbidly obese HEENT: normocephalic, atraumatic Neck: supple, Lungs: Bibasilar crackles.no wheezes Heart :S1 and S2 regular, no murmurs, rubs or gallop Abdomen: Soft, Non tender, non distended, bowel sounds present Extremities : Bilateral lower ext edema. no cyanosis, no clubbing, leg ulcer Neuro: AAO x 3, no focal neurological signs Psych:normal mood - Constitutional Vitals: Temp Pulse Resp BP Pulse Ox 98.1 F 60 22 199/94 98 10/21/16 07:50 10/21/16 07:50 10/21/16 07:50 10/21/16 08:33 10/21/16 12:06 Results - Labs CBC & Chem 7: 10/22/16 05:01 10/22/16 05:01 Labs: Laboratory Last Values WBC 10.2 K/mm3 (4.5-11.0) 10/21/16 06:21 RBC 2.95 M/mm3 (3.65-5.03) L 10/21/16 06:21 Hgb 7.5 gm/dl (11.8-15.2) L 10/21/16 06:21 Hct 24.0 % (35.5-45.6) L 10/21/16 06:21 MCV 82 fl (84-94) L 10/21/16 06:21 MCH 26 pg (28-32) L 10/21/16 06:21 MCHC 31 % (32-34) L 10/21/16 06:21 RDW 20.6 % (13.2-15.2) H 10/21/16 06:21 Plt Count 207 K/mm3 (140-440) 10/21/16 06:21 Lymph % (Auto) 14.8 % (13.4-35.0) 10/20/16 15:38 Gillespie % (Auto) 7.8 % (0.0-7.3) H 10/20/16 15:38 Eos % (Auto) 2.4 % (0.0-4.3) 10/20/16 15:38 Baso % (Auto) 0.9 % (0.0-1.8) 10/20/16 15:38 Lymph # 1.4 K/mm3 (1.2-5.4) 10/20/16 15:38 Gillespie # 0.7 K/mm3 (0.0-0.8) 10/20/16 15:38 Eos # 0.2 K/mm3 (0.0-0.4) 10/20/16 15:38 Baso # 0.1 K/mm3 (0.0-0.1) 10/20/16 15:38 Seg Neutrophils % 74.1 % (40.0-70.0) H 10/20/16 15:38 Seg Neutrophils # 6.9 K/mm3 (1.8-7.7) 10/20/16 15:38 PT 15.0 Sec. (12.2-14.9) H 10/20/16 15:38 INR 1.12 (0.87-1.13) 10/20/16 15:38 APTT 31.5 Sec. (24.2-36.6) 10/20/16 15:38 Sodium 142 mmol/L (137-145) 10/21/16 06:21 Potassium 4.5 mmol/L (3.6-5.0) 10/21/16 06:21 Chloride 107.1 mmol/L (98-107) H 10/21/16 06:21 Carbon Dioxide 19 mmol/L (22-30) L 10/21/16 06:21 Anion Gap 20 mmol/L 10/21/16 06:21 BUN 60 mg/dL (9-20) H 10/21/16 06:21 Creatinine 3.2 mg/dL (0.8-1.5) H 10/21/16 06:21 Estimated GFR 24 ml/min 10/21/16 06:21 BUN/Creatinine Ratio 18.75 % 10/21/16 06:21 Glucose 96 mg/dL (75-100) 10/21/16 06:21 POC Glucose 146 (70-105) H 10/21/16 12:17 Calcium 8.6 mg/dL (8.4-10.2) 10/21/16 06:21 Total Bilirubin 0.20 mg/dL (0.1-1.2) 10/20/16 15:38 AST 10 units/L (5-40) 10/20/16 15:38 ALT 5 units/L (7-56) L 10/20/16 15:38 Alkaline Phosphatase 66 units/L (35-129) 10/20/16 15:38 Total Creatine Kinase 126 units/L (55-170) 10/21/16 06:21 CK-MB (CK-2) 2.0 ng/mL (0.0-4.0) 10/21/16 06:21 CK-MB (CK-2) Rel Index 1.5 (0-4) 10/21/16 06:21 Troponin T 0.040 ng/mL (0.00-0.029) H 10/21/16 06:21 NT-Pro-B Natriuret Pep 1954 pg/mL (0-900) H 10/20/16 15:38 Total Protein 6.8 g/dL (6.3-8.2) 10/20/16 15:38 Albumin 3.2 g/dL (3.9-5) L 10/20/16 15:38 Albumin/Globulin Ratio 0.9 % 10/20/16 15:38 Triglycerides 57 mg/dL (2-149) 10/20/16 15:38 Cholesterol 172 mg/dL (50-199) 10/20/16 15:38 LDL Cholesterol Direct 118 mg/dL (50-130) 10/20/16 15:38 HDL Cholesterol 43 mg/dL (40-59) 10/20/16 15:38 Cholesterol/HDL Ratio 4.00 % 10/20/16 15:38 Blood Type O POSITIVE 10/20/16 22:16 Antibody Screen Negative 10/20/16 22:16
--- NOTE | 2016-10-21 14:47 | Consultation ---
History of Present Illness Consult date: 10/21/16 Requesting physician: LAMONT RICH Consult reason: congestive heart failure History of present illness: The patient is a 61-year-old male with a past medical history significant for peripheral artery disease s/p recent revascularization of right lower extremity , diabetes, hypertension, HLP, CKD (followed by Dr. Nielson), anemia, ALEXANDER, pulmonary HTN, recent acute appendicitis s/p appendectomy in 07/2016, and obesity. He has been seen by our practice on prior hospitalization. He presented with c/o progressively worsening SOB, orthopnea and BLE edema x 2 months. He states these symptoms began following his appendectomy. He denies any chest pain, palpitations, n/v, diaphoresis, dizziness or syncope. Admission CXR showed mild pulmonary vascular congestion; pro-BNP 1954; troponins mildly elevated; serum Cr 3.2; BP 201/102. Of note, he underwent Lexiscan MPI stress test on 08/19/2016 which was negative for ischemia. Echocardiogram done 2016 showed EF 65-70%, trace MR, trace TR, RVSP 51mmHg. Pt also c/o right thigh pain and tenderness. He underwent BLE venous duplex studies on 10/13/2016 which showed no evidence of DVT/SVT. Past History Past Medical History: diabetes, hypertension, hyperlipidemia, PVD, other (CKD ) Past Surgical History: appendectomy Social history: denies: smoking, alcohol abuse, prescription drug abuse Medications and Allergies Allergies Allergy/AdvReac Type Severity Reaction Status Date / Time No Known Allergies Allergy Unverified 03/09/15 08:34 Home Medications Medication Instructions Recorded Confirmed Last Taken Type Acetaminophen/Codeine [Tylenol 1 tab PO QDAY 08/11/16 10/20/16 Unknown History /Codeine # 3 tab] Furosemide [Lasix TAB] 40 mg PO BID 08/11/16 10/20/16 Unknown History Insulin Glargine,Hum.rec.anlog 60 units SC QHS 08/11/16 10/20/16 Unknown History [Lantus Solostar] Naproxen [Naprosyn TAB] 500 mg PO BID 08/11/16 10/20/16 Unknown History Valsartan [Diovan] 320 mg PO QDAY 08/11/16 10/20/16 Unknown History Atenolol [Tenormin] 25 mg PO QDAY #30 tablet 08/19/16 10/20/16 Unknown Rx Bisacodyl [Dulcolax suppos] 10 mg MT QDAY PRN #30 supp.rect 08/19/16 10/20/16 Unknown Rx Clonidine HCl [Kapvay] 0.2 mg PO TID #90 tab.er.12h 08/19/16 10/20/16 Unknown Rx Ferrous Sulfate [Feosol 325 MG tab] 325 mg PO BID #60 tablet 08/19/16 10/20/16 Unknown Rx Metolazone [Zaroxolyn] 5 mg PO Q48H #15 tablet 08/19/16 10/20/16 Unknown Rx Polyethylene Glycol 3350 [Miralax 17 gm PO QDAY PRN #30 powd.pack 08/19/1610/20 Unknown Rx 3350] hydrALAZINE [Apresoline TAB] 100 mg PO TID #90 tab 08/19/16 10/20/16 Unknown Rx oxyCODONE /ACETAMINOPHEN [Percocet 1 tab PO Q4HR #25 tab 08/19/16 10/20/16 Unknown Rx 5/325] Ascorbic Acid [Vitamin C] 500 mg PO QDAY 10/20/16 10/20/16 Unknown History AtorvaSTATin [Lipitor] 20 mg PO QDAY 10/20/16 10/20/16 Unknown History Cholecalciferol (Vitamin D3) 2,000 units PO QDAY 10/20/16 10/20/16 Unknown History [Vitamin D3 2,000 unit] Multivit-Min/Iron/FA/Ginseng [Ra 1 tab PO QDAY 10/20/16 10/20/16 Unknown History [employer] Tablet] NIFEdipine XL [Procardia Xl] 90 mg PO QDAY 10/20/16 10/20/16 Unknown History Tamsulosin [Flomax] 0.4 mg PO QDAY 10/20/16 10/20/16 Unknown History Zinc Acetate [Galzin] 50 mg PO QDAY 10/20/16 10/20/16 Unknown History traMADol [Ultram 50 MG tab] 50 mg PO TID 10/20/16 10/20/16 Unknown History Active Meds: Active Medications Ascorbic Acid (Vitamin C) 500 mg PO QDAY [facility] Last Admin: 10/21/16 10:20 Dose: 500 mg Aspirin (Baby Aspirin) 81 mg PO QDAY [facility] Last Admin: 10/21/16 10:19 Dose: 81 mg Atorvastatin Calcium (Lipitor) 20 mg PO QDAY [facility] Last Admin: 10/21/16 10:19 Dose: 20 mg Bisacodyl (Dulcolax) 10 mg MT QDAY PRN PRN Reason: constipation unrelieved by MOM Carvedilol (Coreg) 3.125 mg PO BID [facility] Last Admin: 10/21/16 10:19 Dose: 3.125 mg Cholecalciferol (Vitamin D3) 2,000 unit PO QDAY [facility] Last Admin: 10/21/16 10:19 Dose: 2,000 unit Clonidine HCl (Catapres) 0.2 mg PO TID [facility] Last Admin: 10/21/16 08:33 Dose: 0.2 mg Dextrose (D50w (25gm)) 50 ml IV PRN PRN PRN Reason: Hypoglycemia Ferrous Sulfate (Feosol) 325 mg PO BID [facility] Last Admin: 10/21/16 10:18 Dose: 325 mg Furosemide (Lasix) 40 mg IV QDAY [facility] Last Admin: 10/21/16 10:20 Dose: 40 mg Heparin Sodium (Porcine) (Heparin) 5,000 unit SUB-Q Q12HR [facility] Last Admin: 10/21/16 10:20 Dose: 5,000 unit Hydralazine HCl (Apresoline) 100 mg PO TID [facility] Last Admin: 10/21/16 08:33 Dose: 100 mg Insulin Detemir (Levemir) 60 units SUB-Q QHS [facility] Last Admin: 10/20/16 23:37 Dose: 60 units Insulin Human Regular (Novolin R) 0 units SUB-Q [facility] PRN Reason: Protocol Last Admin: 10/21/16 12:30 Dose: Not Given Insulin Human Regular (Novolin R) 0 units SUB-Q QHS [facility] PRN Reason: Protocol Metolazone (Zaroxolyn) 5 mg PO Q48HR [facility] Last Admin: 10/21/16 10:19 Dose: 5 mg Morphine Sulfate (Morphine) 2 mg IV Q5MIN PRN PRN Reason: Chest Pain Nitroglycerin (Nitrostat) 0.4 mg SL .Q5MIN PRN PRN Reason: Chest Pain Nitroglycerin (Nitro-Bid 2%) 1 inch TP QIDNTG [facility] PRN Reason: Protocol Last Admin: 10/21/16 10:20 Dose: 1 inch Polyethylene Glycol (Miralax 3350) 17 gm PO QDAY PRN PRN Reason: Constipation Tamsulosin HCl (Flomax) 0.4 mg PO QDAY [facility] Last Admin: 10/21/16 10:20 Dose: 0.4 mg Tramadol HCl (Ultram) 50 mg PO TID [facility] Last Admin: 10/21/16 08:33 Dose: 50 mg Valsartan (Diovan) 320 mg PO QDAY [facility] Last Admin: 10/21/16 10:19 Dose: 320 mg Review of Systems Constitutional: no weight loss, no weight gain, no fever, no chills, no sweats Ears, nose, mouth and throat: no ear pain, no nose pain, no sinus pressure, no sinus pain Cardiovascular: orthopnea, edema, shortness of breath, dyspnea on exertion, paroxysmal nocturnal dyspnea, high blood pressure, leg edema, decreased exercise tolerance, no chest pain, no palpitations, no rapid/irregular heart beat, no syncope, no lightheadedness Respiratory: shortness of breath, dyspnea on exertion, no cough, no congestion, no wheezing, no pain on inspiration Gastrointestinal: no abdominal pain, no nausea, no vomiting, no diarrhea, no constipation, no change in bowel habits Genitourinary Male: no dysuria, no hematuria, no flank pain, no discharge, no urinary frequency, no urinary hesitancy Musculoskeletal: no neck stiffness, no neck pain, no shooting arm pain, no arm numbness/tingling, no low back pain, no leg numbness/tingling, no redness of joints Integumentary: no rash, no pruritis, no redness, no sores, no wounds Neurological: no head injury, no paralysis, no weakness, no parathesias, no numbness, no tingling, no seizures, no syncope Psychiatric: no anxiety Endocrine: no cold intolerance, no heat intolerance Hematologic/Lymphatic: no easy bruising, no easy bleeding Allergic/Immunologic: no urticaria, no wheezing, no persistent infections Physical Examination Vital Signs Temp Pulse Resp BP Pulse Ox 97.8 F 51 L 16 135/64 97 10/20/16 15:31 10/20/16 15:31 10/20/16 15:31 10/20/16 15:31 10/20/16 15:31 General appearance: no acute distress HEENT: Positive: PERRL, Normocephaly, Mucus Membranes Moist Neck: Positive: neck supple, trachea midline Cardiac: Positive: Reg Rate and Rhythm, S1/S2, Systolic Murmur Lungs: Positive: clear to auscultation, Decreased Breath Sounds Neuro: Positive: Grossly Intact, Cranial Nerve 2-12 Intact Abdomen: Positive: Active Bowel Sounds. Negative: Tender Skin: Positive: Other (LLE in dressing ) Musculoskeletal: Normal Range of Motion Extremities: Present: +3 Edema (BLE pitting) Results 10/21/16 06:21 10/21/16 06:21 Cardiac Enzymes 10/21/16 10/21/16 Range/Units 00:17 06:21 CK-MB (CK-2) 2.5 2.0 (0.0-4.0) ng/mL CBC 10/21/16 Range/Units 06:21 WBC 10.2 (4.5-11.0) K/mm3 RBC 2.95 L (3.65-5.03) M/mm3 Hgb 7.5 L (11.8-15.2) gm/dl Hct 24.0 L (35.5-45.6) % Plt Count 207 (140-440) K/mm3 Comprehensive Metabolic Panel 10/21/16 Range/Units 06:21 Sodium 142 (137-145) mmol/L Potassium 4.5 (3.6-5.0) mmol/L Chloride 107.1 H (98-107) mmol/L Carbon Dioxide 19 L (22-30) mmol/L BUN 60 H (9-20) mg/dL Creatinine 3.2 H (0.8-1.5) mg/dL Glucose 96 (75-100) mg/dL Calcium 8.6 (8.4-10.2) mg/dL - Imaging and Cardiology Echo: report reviewed (08/13/2016: EF 65-70%, trace MR, trace TR) EKG: image reviewed EKG interpretations - Telemetry EKG Rhythm: Sinus Rhythm - EKG Sinus rhythms and dysrhythmias: sinus rhythm Assessment and Plan Assessment: Acute diastolic heart failure Accelerated HTN Elevated troponin - flat and unchanged from prior admissions; pt denies chest pain; ECG with NAF; recent negative stress test 07/2016; currently nonspecific in setting of accelerated HTN, acutely decompensated HF, and JOCELYN on CKD. JOCELYN on CKD Anemia - suspected to be 2/2 chronic disease per nephrology. Intermittent sinus bradycardia - pt asymptomatic. Hypoalbuminemia ALEXANDER Pulmonary HTN - RVSP 51mmHg on echo 07/2016 DM HLP PVD Plan: Cont diuresis with IV lasix and PO zaroxolyn Q48Hr. Would prefer to increase IV lasix dosage to 40mg BID if okay per nephrology. Repeat BMP in AM. Obtain strict I&Os. Cont ASA, lipitor, coreg, coreg, valsartan. No indication for repeat echo/stress test at this time. Assessment and plan reviewed with pt at bedside. The patient has been seen in conjunction with Dr. Paz who agrees with the assessment and plan of care.
[2016-10-21 18:38] LABS: Total Iron Binding Capacity 240.8 mcg/dL (250-450)
[2016-10-21] MEDS ORDERED: INSULIN GLARGINE HUM REC ANLOG 60 UNIT SC SCH (22:00)
[2016-10-21] MEDS: LEVEMIR SUB-Q SCH (22:32)
[2016-10-22] MEDS: NITRO-BID 2% TP SCH ×3 (05:12→21:21)
[2016-10-22 05:54] LABS: BUN/Creatinine Ratio 20.33; Calcium 8.7 mg/dL (8.4-10.2); Chloride 104.6 mmol/L (98-107)
[2016-10-22 05:56] LABS: Hematocrit 21.9 % (35.5-45.6); Hemoglobin 7.1 gm/dl (11.8-15.2); Mean Corpuscular HGB Conc 32 % (32-34); Mean Corpuscular Hemoglobin 26 pg (28-32); Mean Corpuscular Volume 81 fl (84-94); Platelet Count 176 K/mm3 (140-440); Red Blood Count 2.71 M/mm3 (3.65-5.03)
[2016-10-22 06:04] LABS: Red Cell Distribution Width 20.5 % (13.2-15.2)
[2016-10-22] MEDS: VITAMIN D3 PO SCH (11:30)
[2016-10-22] MEDS: VITAMIN C PO SCH (11:30)
[2016-10-22] MEDS: FEOSOL PO SCH ×2 (11:31→22:43)
[2016-10-22] MEDS: BABY ASPIRIN PO SCH (11:31)
--- NOTE | 2016-10-22 11:31 | Progress Note ---
Assessment and Plan Assessment: Acute diastolic heart failure Accelerated HTN Elevated troponin - flat and unchanged from prior admissions; pt denies chest pain; ECG with NAF; recent negative stress test 07/2016; currently nonspecific in setting of accelerated HTN, acutely decompensated HF, and JOCELYN on CKD. JOCELYN on CKD Anemia - suspected to be 2/2 chronic disease per nephrology; anemia w/u in progress. Intermittent sinus bradycardia - pt asymptomatic; suspect 2/2 ALEXANDER. Hypoalbuminemia ALEXANDER - PM CPAP Pulmonary HTN - RVSP 51mmHg on echo 07/2016 DM HLP PVD Plan: Cont diuresis with IV lasix and PO zaroxolyn Q48Hr. Would prefer to increase IV lasix dosage to 40mg BID if okay per nephrology. Repeat BMP in AM. Cont ASA, lipitor, coreg, coreg, valsartan. No indication for repeat echo/stress test at this time. Assessment and plan reviewed with pt at bedside. The patient has been seen in conjunction with Dr. Paz who agrees with the assessment and plan of care. Subjective Date of service: 10/22/16 Principal diagnosis: HF Interval history: Pt resting comfortably, BLE edema improving, SOB improving. SB noted on tele overnight, pt asymptomatic with stable BPs. Objective Last Vital Signs Temp 97.7 F 10/22/16 09:30 Pulse 62 10/22/16 09:30 Resp 20 10/22/16 09:30 BP 199/90 10/22/16 09:30 Pulse Ox 98 10/22/16 09:30 - Physical Examination General: Appears Well, No Apparent Distress HEENT: Positive: PERRL, Normocephaly, Mucus Membranes Moist Neck: Positive: neck supple, trachea midline Cardiac: Positive: Reg Rate and Rhythm, S1/S2 Lungs: Positive: Decreased Breath Sounds Neuro: Positive: Grossly Intact, Cranial Nerve 2-12 Intact Abdomen: Positive: Active Bowel Sounds. Negative: Tender Skin: Positive: Other (LLE in dressing ) Musculoskeletal: Normal Range of Motion Extremities: Present: +2 Edema (BLE pitting) - Labs and Meds CBC 10/22/16 Range/Units 05:01 WBC 9.0 (4.5-11.0) K/mm3 RBC 2.71 L (3.65-5.03) M/mm3 Hgb 7.1 L (11.8-15.2) gm/dl Hct 21.9 L (35.5-45.6) % Plt Count 176 (140-440) K/mm3 Comprehensive Metabolic Panel 10/22/16 Range/Units 05:01 Sodium 138 (137-145) mmol/L Potassium 5.0 (3.6-5.0) mmol/L Chloride 104.6 (98-107) mmol/L Carbon Dioxide 20 L (22-30) mmol/L BUN 61 H (9-20) mg/dL Creatinine 3.0 H (0.8-1.5) mg/dL Glucose 54 L (75-100) mg/dL Calcium 8.7 (8.4-10.2) mg/dL - Imaging and Cardiology EKG: image reviewed Echo: report reviewed (08/13/2016: EF 65-70%, trace MR, trace TR) - Telemetry EKG Rhythm: Sinus Rhythm - EKG Sinus rhythms and dysrhythmias: sinus rhythm
[2016-10-22] MEDS: FLOMAX PO SCH (11:32)
[2016-10-22] MEDS: COREG PO SCH ×2 (11:33→22:44)
[2016-10-22] MEDS: LASIX IV SCH (11:34)
[2016-10-22] MEDS: DIOVAN PO SCH (11:35)
[2016-10-22] MEDS: ULTRAM PO SCH ×3 (11:48→22:43)
[2016-10-22] MEDS: CATAPRES PO SCH ×3 (11:49→22:43)
[2016-10-22] MEDS: HEPARIN SUB-Q SCH ×2 (11:50→22:44)
--- NOTE | 2016-10-22 15:36 | Progress Note ---
Subjective Principal diagnosis: HF Interval history: Patient was evaluated today for follow-up on multiple renal related issues Alert awake sitting in chair Vital labs intake and output medications were reviewed Current medications: Reviewed Social history:Reviewed Family history: Reviewed HEENT: No uremic order oral mucosa moist Neck: Supple no jvd Chest: Clear to auscultation occasional basilar crackles posteriorly Heart: Regular rate and rhythm S1 and S2 heard no S3-S4 Abdomen: Soft nontender no voluntary guarding rigidity or rebound Extremity: 2 plus edema Psychiatry: No agitation and aggression noted Assessment and plan; stage IV chronic kidney disease current renal function stable Anemia in renal failure to monitor Will give iron infusion as his iron saturation is low, erythropoietin for anemia in kidney failure Fluid restriction sodium restriction diet changes lifestyle modifications encouraged No acute emergent indication for renal replacement therapy at this time Patient needs daily labs Goal of diuresis should be 2-5 pounds per day Objective - Vital Signs Vital signs: Vital Signs - 12hr 10/22/16 10/22/16 10/22/16 04:00 05:12 05:54 Temperature 98.2 F Pulse Rate 49 L 52 L 52 L Respiratory 18 Rate Blood Pressure 177/78 136/74 O2 Sat by Pulse 96 Oximetry 10/22/16 10/22/16 10/22/16 08:12 09:30 11:33 Temperature 97.7 F Pulse Rate 62 70 Respiratory 20 Rate Blood Pressure 199/90 199/90 O2 Sat by Pulse 97 98 Oximetry 10/22/16 10/22/16 11:35 11:49 Temperature Pulse Rate 60 58 L Respiratory Rate Blood Pressure 199/90 199/90 O2 Sat by Pulse Oximetry - Lab 10/22/16 05:01 10/22/16 05:01 Most recent lab results Calcium 8.7 mg/dL (8.4-10.2) 10/22/16 05:01
[2016-10-22] MEDS: APRESOLINE PO SCH ×3 (16:21→22:43)
[2016-10-22] MEDS ORDERED: APRESOLINE IV PRN (17:09)
--- NOTE | 2016-10-22 18:37 | Progress Note ---
Assessment and Plan Assessment and plan: Acute diastolic heart failure. On Coreg, Erika and Xi, cardiology following Chronic kidney disease. Creatinine 3.0 today.Nephrology following Diabetes mellitus type 2. Check fingerstick glucose Qac and hs Hypertension. Monitor Sleep apnea. CPAP QHS Morbid obesity. I counseled him on losing weight Anemia. Hgb 7.1. Will transfuse if Hgb<7 Elevated Troponin. Will monitor. Cardiology following Full code status History Interval history: Less shortness of breath, leg swelling no chest pain Hospitalist Physical - Physical exam Narrative exam: Gen appearance: Not in acute distress, morbidly obese HEENT: normocephalic, atraumatic Neck: supple, Lungs: Bibasilar crackles.no wheezes Heart :S1 and S2 regular, no murmurs, rubs or gallop Abdomen: Soft, Non tender, non distended, bowel sounds present Extremities : Bilateral lower ext edema. no cyanosis, no clubbing, leg ulcer Neuro: AAO x 3, no focal neurological signs Psych:normal mood - Constitutional Vitals: Temp Pulse Resp BP Pulse Ox 97.7 F 58 L 20 197/91 98 10/22/16 09:30 10/22/16 16:21 10/22/16 09:30 10/22/16 16:21 10/22/16 09:30 General appearance: Present: no acute distress Results - Labs CBC & Chem 7: 10/22/16 05:01 10/22/16 05:01 Labs: Laboratory Last Values WBC 9.0 K/mm3 (4.5-11.0) 10/22/16 05:01 RBC 2.71 M/mm3 (3.65-5.03) L 10/22/16 05:01 Hgb 7.1 gm/dl (11.8-15.2) L 10/22/16 05:01 Hct 21.9 % (35.5-45.6) L 10/22/16 05:01 MCV 81 fl (84-94) L 10/22/16 05:01 MCH 26 pg (28-32) L 10/22/16 05:01 MCHC 32 % (32-34) 10/22/16 05:01 RDW 20.5 % (13.2-15.2) H 10/22/16 05:01 Plt Count 176 K/mm3 (140-440) 10/22/16 05:01 Lymph % (Auto) 14.8 % (13.4-35.0) 10/20/16 15:38 [place] % (Auto) 7.8 % (0.0-7.3) H 10/20/16 15:38 Eos % (Auto) 2.4 % (0.0-4.3) 10/20/16 15:38 Baso % (Auto) 0.9 % (0.0-1.8) 10/20/16 15:38 Lymph # 1.4 K/mm3 (1.2-5.4) 10/20/16 15:38 [place] # 0.7 K/mm3 (0.0-0.8) 10/20/16 15:38 Eos # 0.2 K/mm3 (0.0-0.4) 10/20/16 15:38 Baso # 0.1 K/mm3 (0.0-0.1) 10/20/16 15:38 Seg Neutrophils % 74.1 % (40.0-70.0) H 10/20/16 15:38 Seg Neutrophils # 6.9 K/mm3 (1.8-7.7) 10/20/16 15:38 Percent Retic 2.80 % (0.78-2.58) H 10/21/16 17:46 PT 15.0 Sec. (12.2-14.9) H 10/20/16 15:38 INR 1.12 (0.87-1.13) 10/20/16 15:38 APTT 31.5 Sec. (24.2-36.6) 10/20/16 15:38 Sodium 138 mmol/L (137-145) 10/22/16 05:01 Potassium 5.0 mmol/L (3.6-5.0) 10/22/16 05:01 Chloride 104.6 mmol/L (98-107) 10/22/16 05:01 Carbon Dioxide 20 mmol/L (22-30) L 10/22/16 05:01 Anion Gap 18 mmol/L 10/22/16 05:01 BUN 61 mg/dL (9-20) H 10/22/16 05:01 Creatinine 3.0 mg/dL (0.8-1.5) H 10/22/16 05:01 Estimated GFR 26 ml/min 10/22/16 05:01 BUN/Creatinine Ratio 20.33 % 10/22/16 05:01 Glucose 54 mg/dL (75-100) L 10/22/16 05:01 POC Glucose 80 (70-105) 10/22/16 11:36 Calcium 8.7 mg/dL (8.4-10.2) 10/22/16 05:01 Iron 31 ug/dL (49-181) L 10/21/16 17:46 TIBC 240.80 mcg/dL (250-450) L 10/21/16 17:46 % Saturation 12.87 % 10/21/16 17:46 Transferrin 172 mg/dl (180-329) L 10/21/16 17:46 Ferritin 200.0 ng/mL (13.0-400.0) 10/21/16 17:46 Total Bilirubin 0.20 mg/dL (0.1-1.2) 10/20/16 15:38 AST 10 units/L (5-40) 10/20/16 15:38 ALT 5 units/L (7-56) L 10/20/16 15:38 Alkaline Phosphatase 66 units/L (35-129) 10/20/16 15:38 Total Creatine Kinase 126 units/L (55-170) 10/21/16 06:21 CK-MB (CK-2) 2.0 ng/mL (0.0-4.0) 10/21/16 06:21 CK-MB (CK-2) Rel Index 1.5 (0-4) 10/21/16 06:21 Troponin T 0.040 ng/mL (0.00-0.029) H 10/21/16 06:21 NT-Pro-B Natriuret Pep 1954 pg/mL (0-900) H 10/20/16 15:38 Total Protein 6.8 g/dL (6.3-8.2) 10/20/16 15:38 Albumin 3.2 g/dL (3.9-5) L 10/20/16 15:38 Albumin/Globulin Ratio 0.9 % 10/20/16 15:38 Triglycerides 57 mg/dL (2-149) 10/20/16 15:38 Cholesterol 172 mg/dL (50-199) 10/20/16 15:38 LDL Cholesterol Direct 118 mg/dL (50-130) 10/20/16 15:38 HDL Cholesterol 43 mg/dL (40-59) 10/20/16 15:38 Cholesterol/HDL Ratio 4.00 % 10/20/16 15:38 Vitamin B12 606.8 pg/mL (211-911) 10/21/16 17:46 TSH 0.847 mlU/mL (0.270-4.200) 10/22/16 05:01 Thyroxine (T4) 4.6 ug/dL (4.0-12.0) 10/22/16 05:01 Blood Type O POSITIVE 10/20/16 22:16 Antibody Screen Negative 10/20/16 22:16
[2016-10-22] MEDS: LEVEMIR SUB-Q SCH (22:44)
[2016-10-23] MEDS: NITRO-BID 2% TP SCH ×4 (05:37→18:09)
[2016-10-23 07:24] LABS: Hematocrit 21.6 % (35.5-45.6); Hemoglobin 6.8 gm/dl (11.8-15.2); Mean Corpuscular HGB Conc 31 % (32-34); Mean Corpuscular Volume 82 fl (84-94); Platelet Count 176 K/mm3 (140-440); Red Blood Count 2.65 M/mm3 (3.65-5.03); White Blood Count 7.8 K/mm3 (4.5-11.0)
[2016-10-23 07:25] LABS: Mean Corpuscular Hemoglobin 26 pg (28-32); Red Cell Distribution Width 20.2 % (13.2-15.2)
[2016-10-23 07:38] LABS: BUN/Creatinine Ratio 19.03; Calcium 8.4 mg/dL (8.4-10.2); Chloride 105.2 mmol/L (98-107)
[2016-10-23] MEDS ORDERED: NACL 0.9% 500 ML 500 ML IV NR (08:30)
[2016-10-23] MEDS: CATAPRES PO SCH ×3 (08:56→21:33)
[2016-10-23] MEDS: ULTRAM PO SCH ×3 (08:56→21:32)
[2016-10-23] MEDS: APRESOLINE PO SCH ×3 (09:03→21:33)
--- NOTE | 2016-10-23 10:01 | Progress Note ---
Assessment and Plan Assessment: Acute diastolic heart failure Accelerated HTN NSTEMI type II - flat and unchanged from prior admissions; pt denies chest pain ; ECG with NAF; recent negative stress test 07/2016; currently nonspecific in setting of accelerated HTN, acutely decompensated HF, and JOCELYN on CKD. JOCELYN on CKD Anemia - suspected to be 2/2 chronic disease per nephrology; iron deficient. Intermittent sinus bradycardia - pt asymptomatic; suspect 2/2 ALEXANDER. Hypoalbuminemia ALEXANDER - PM CPAP Pulmonary HTN - RVSP 51mmHg on echo 07/2016 DM HLP PVD Plan: Cont diuresis with IV lasix and PO zaroxolyn Q48Hr. Repeat BMP in AM. Cont ASA, lipitor, coreg, coreg, valsartan. No indication for repeat echo/stress test at this time. Iron supplementation per primary. Transfuse PRBC PRN per primary. Per primary, will transfuse for Hgb <7. Assessment and plan reviewed with pt at bedside. The patient has been seen in conjunction with Dr. Paz who agrees with the assessment and plan of care. Subjective Date of service: 10/23/16 Principal diagnosis: HF Interval history: Pt resting comfortably up in chair, BLE edema improving, SOB improving. VSS. H/ H noted to be 6.8/21.6 this AM. Objective Last Vital Signs Temp 98.9 F 10/23/16 08:33 Pulse 65 10/23/16 08:56 Resp 20 10/23/16 08:56 BP 195/85 10/23/16 08:56 Pulse Ox 94 10/23/16 08:33 - Physical Examination General: Appears Well, No Apparent Distress HEENT: Positive: PERRL, Normocephaly, Mucus Membranes Moist Neck: Positive: neck supple, trachea midline Cardiac: Positive: Reg Rate and Rhythm, S1/S2 Lungs: Positive: Decreased Breath Sounds Neuro: Positive: Grossly Intact, Cranial Nerve 2-12 Intact Abdomen: Positive: Active Bowel Sounds. Negative: Tender Skin: Positive: Other (LLE in dressing ) Musculoskeletal: Normal Range of Motion Extremities: Present: +2 Edema (BLE pitting) - Labs and Meds CBC 10/23/16 Range/Units 06:55 WBC 7.8 (4.5-11.0) K/mm3 RBC 2.65 L (3.65-5.03) M/mm3 Hgb 6.8 L (11.8-15.2) gm/dl Hct 21.6 L (35.5-45.6) % Plt Count 176 (140-440) K/mm3 Comprehensive Metabolic Panel 10/23/16 Range/Units 06:55 Sodium 139 (137-145) mmol/L Potassium 5.0 (3.6-5.0) mmol/L Chloride 105.2 (98-107) mmol/L Carbon Dioxide 20 L (22-30) mmol/L BUN 59 H (9-20) mg/dL Creatinine 3.1 H (0.8-1.5) mg/dL Glucose 100 (75-100) mg/dL Calcium 8.4 (8.4-10.2) mg/dL - Imaging and Cardiology EKG: image reviewed Echo: report reviewed (08/13/2016: EF 65-70%, trace MR, trace TR) - Telemetry EKG Rhythm: Sinus Rhythm - EKG Sinus rhythms and dysrhythmias: sinus rhythm
[2016-10-23 10:09] LABS: Iron 26 ug/dL (49-181); Total Iron Binding Capacity 196 mcg/dL (250-450)
[2016-10-23] MEDS: DIOVAN PO SCH (10:10)
[2016-10-23] MEDS: VITAMIN D3 PO SCH (10:11)
[2016-10-23] MEDS: BABY ASPIRIN PO SCH (10:11)
[2016-10-23] MEDS: COREG PO SCH ×2 (10:11→21:32)
[2016-10-23] MEDS: VITAMIN C PO SCH (10:11)
[2016-10-23] MEDS: FLOMAX PO SCH (10:11)
[2016-10-23] MEDS: FEOSOL PO SCH ×2 (10:11→21:32)
[2016-10-23] MEDS: ZAROXOLYN PO SCH (10:11)
[2016-10-23] MEDS: LASIX IV SCH (10:12)
[2016-10-23] MEDS: HEPARIN SUB-Q SCH ×2 (10:20→21:33)
--- NOTE | 2016-10-23 11:43 | Progress Note ---
Subjective Principal diagnosis: HF Interval history: Patient was seen today for follow-up patient is sitting in the chair,he does follow up with the tailing machine operator Dr. corado as he recalls Denies any complaints of shortness of breath chest pain Interdisciplinary notes were also reviewed Events of 24 hours vitals labs intake output medications were reviewed Social history: Reviewed Medication: Reviewed Family history: Reviewed General: Alert awake nor acute distress HEENT: Oral mucosa moist no uremic order Neck: Supple no JVD Chest: bilateral crackles better Heart: Regular rate and rhythm S1-S2 heard Abdomen: Soft nontender Extremity: Dry skin edema approximately 2+ Neurological: Alert awake and oriented Assessment and plan Chronic kidney disease: Patient is currently being followed by Dr. Nielson in the office Anasarca-like feature: Mostly due to noncompliance with diet congestive heart failure kidney failure as well as severe anemia Anemia and renal failure quite severe at this time patient will benefit from packed red blood cell transfusion; he has also received erythropoietin as well as iron infusion during this admission There is no acute emergent indication for renal replacement therapy Status post non-ST elevation type PR type II accelerated hypertension/acute diastolic heart failure/ Patient did receive adequate counseling and education regarding all the renal related issues Pertinent questions were answered Prognosis is currently guarded We'll continue to follow and make recommendations from renal standpoint Objective - Vital Signs Vital signs: Vital Signs - 12hr 10/23/16 10/23/16 10/23/16 00:00 05:00 05:37 Temperature 98.1 F Pulse Rate 56 L 56 L 52 L Respiratory 18 Rate Respiratory Rate [Abdomen] Blood Pressure 147/81 147/81 O2 Sat by Pulse 98 Oximetry 10/23/16 10/23/16 10/23/16 06:29 08:33 08:52 Temperature 98.3 F 98.9 F Pulse Rate 53 L 65 Respiratory 18 16 Rate Respiratory 20 Rate [Abdomen] Blood Pressure 150/70 195/85 O2 Sat by Pulse 97 94 Oximetry 10/23/16 10/23/16 10/23/16 08:56 10:00 10:10 Temperature Pulse Rate 65 65 Respiratory 20 Rate Respiratory Rate [Abdomen] Blood Pressure 195/85 195/85 O2 Sat by Pulse 97 Oximetry 10/23/16 10/23/16 10:11 10:19 Temperature Pulse Rate 65 65 Respiratory Rate Respiratory Rate [Abdomen] Blood Pressure 195/85 195/85 O2 Sat by Pulse Oximetry - Lab 10/23/16 06:55 10/23/16 06:55 Most recent lab results Calcium 8.4 mg/dL (8.4-10.2) 10/23/16 06:55
--- NOTE | 2016-10-23 15:14 | Progress Note ---
Assessment and Plan Assessment and plan: Acute diastolic heart failure. Continue Coreg, Lasix and Diovan. He feels better. he is sitting up in chair. Cardiology following Acute on Chronic kidney disease. Creatinine 3.1 today. Nephrology following Diabetes mellitus type 2. Check fingerstick glucose Qac and hs Hypertension., uncontrolled. Increase Hydralazine dose to 50mg po tid Monitor Sleep apnea. CPAP QHS Morbid obesity. I counseled him on losing weight Anemia. Hgb 6.8 today. Will transfuse 2 units PRBC, get Fe/TIBC, stool occult blood. Elevated Troponin likely due to CHF. Will monitor. Cardiology following Full code status Disposition:Likely d/c home in 1-2 days History Interval history: Less shortness of breath, leg swelling no chest pain no fever Hospitalist Physical - Physical exam Narrative exam: Gen appearance: Not in acute distress, morbidly obese, sitting up in chair HEENT: normocephalic, atraumatic Neck: supple, Lungs: Bibasilar crackles.no wheezes Heart :S1 and S2 regular, no murmurs, rubs or gallop Abdomen: Soft, Non tender, non distended, bowel sounds present Extremities : Bilateral lower ext edema. no cyanosis, no clubbing, leg ulcer Neuro: AAO x 3, no focal neurological signs Psych:normal mood - Constitutional Vitals: Temp Pulse Resp BP Pulse Ox 98.3 F 52 L 20 154/69 100 10/23/16 14:25 10/23/16 14:30 10/23/16 14:29 10/23/16 14:30 10/23/16 14:25 General appearance: Present: no acute distress Results - Labs CBC & Chem 7: 10/23/16 06:55 10/23/16 06:55 Labs: Laboratory Last Values WBC 7.8 K/mm3 (4.5-11.0) 10/23/16 06:55 RBC 2.65 M/mm3 (3.65-5.03) L 10/23/16 06:55 Hgb 6.8 gm/dl (11.8-15.2) L 10/23/16 06:55 Hct 21.6 % (35.5-45.6) L 10/23/16 06:55 MCV 82 fl (84-94) L 10/23/16 06:55 MCH 26 pg (28-32) L 10/23/16 06:55 MCHC 31 % (32-34) L 10/23/16 06:55 RDW 20.2 % (13.2-15.2) H 10/23/16 06:55 Plt Count 176 K/mm3 (140-440) 10/23/16 06:55 Lymph % (Auto) 14.8 % (13.4-35.0) 10/20/16 15:38 [place] % (Auto) 7.8 % (0.0-7.3) H 10/20/16 15:38 Eos % (Auto) 2.4 % (0.0-4.3) 10/20/16 15:38 Baso % (Auto) 0.9 % (0.0-1.8) 10/20/16 15:38 Lymph # 1.4 K/mm3 (1.2-5.4) 10/20/16 15:38 [place] # 0.7 K/mm3 (0.0-0.8) 10/20/16 15:38 Eos # 0.2 K/mm3 (0.0-0.4) 10/20/16 15:38 Baso # 0.1 K/mm3 (0.0-0.1) 10/20/16 15:38 Seg Neutrophils % 74.1 % (40.0-70.0) H 10/20/16 15:38 Seg Neutrophils # 6.9 K/mm3 (1.8-7.7) 10/20/16 15:38 Percent Retic 2.80 % (0.78-2.58) H 10/21/16 17:46 PT 15.0 Sec. (12.2-14.9) H 10/20/16 15:38 INR 1.12 (0.87-1.13) 10/20/16 15:38 APTT 31.5 Sec. (24.2-36.6) 10/20/16 15:38 Sodium 139 mmol/L (137-145) 10/23/16 06:55 Potassium 5.0 mmol/L (3.6-5.0) 10/23/16 06:55 Chloride 105.2 mmol/L (98-107) 10/23/16 06:55 Carbon Dioxide 20 mmol/L (22-30) L 10/23/16 06:55 Anion Gap 19 mmol/L 10/23/16 06:55 BUN 59 mg/dL (9-20) H 10/23/16 06:55 Creatinine 3.1 mg/dL (0.8-1.5) H 10/23/16 06:55 Estimated GFR 25 ml/min 10/23/16 06:55 BUN/Creatinine Ratio 19.03 % 10/23/16 06:55 Glucose 100 mg/dL (75-100) 10/23/16 06:55 POC Glucose 147 (70-105) H 10/23/16 12:28 Calcium 8.4 mg/dL (8.4-10.2) 10/23/16 06:55 Iron 26 ug/dL (49-181) L 10/23/16 09:25 TIBC 196 mcg/dL (250-450) L 10/23/16 09:25 % Saturation 12.87 % 10/21/16 17:46 Transferrin 172 mg/dl (180-329) L 10/21/16 17:46 Ferritin 206.9 ng/mL (13.0-400.0) 10/23/16 09:25 Total Bilirubin 0.20 mg/dL (0.1-1.2) 10/20/16 15:38 AST 10 units/L (5-40) 10/20/16 15:38 ALT 5 units/L (7-56) L 10/20/16 15:38 Alkaline Phosphatase 66 units/L (35-129) 10/20/16 15:38 Total Creatine Kinase 126 units/L (55-170) 10/21/16 06:21 CK-MB (CK-2) 2.0 ng/mL (0.0-4.0) 10/21/16 06:21 CK-MB (CK-2) Rel Index 1.5 (0-4) 10/21/16 06:21 Troponin T 0.040 ng/mL (0.00-0.029) H 10/21/16 06:21 NT-Pro-B Natriuret Pep 1954 pg/mL (0-900) H 10/20/16 15:38 Total Protein 6.8 g/dL (6.3-8.2) 10/20/16 15:38 Albumin 3.2 g/dL (3.9-5) L 10/20/16 15:38 Albumin/Globulin Ratio 0.9 % 10/20/16 15:38 Triglycerides 57 mg/dL (2-149) 10/20/16 15:38 Cholesterol 172 mg/dL (50-199) 10/20/16 15:38 LDL Cholesterol Direct 118 mg/dL (50-130) 10/20/16 15:38 HDL Cholesterol 43 mg/dL (40-59) 10/20/16 15:38 Cholesterol/HDL Ratio 4.00 % 10/20/16 15:38 Vitamin B12 606.8 pg/mL (211-911) 10/21/16 17:46 TSH 0.847 mlU/mL (0.270-4.200) 10/22/16 05:01 Thyroxine (T4) 4.6 ug/dL (4.0-12.0) 10/22/16 05:01 Blood Type O POSITIVE 10/20/16 22:16 Antibody Screen Negative 10/20/16 22:16 Crossmatch See Detail 10/20/16 22:16
--- NOTE | 2016-10-23 15:27 | Query- Renal Failure ---
Jj Ortiz__Vidya Date:____10/23/2016 Target Setter/CHIO:__Daija Phone#:__[phone] Exercise your independent professional judgment when responding to query. Questions asked do not imply a particular answer is desired or expected. We greatly appreciate your clarification on this issue. Clinical Documentation States: 61 Year old male was admitted on 10/20/2016 for having shortness of breath. The Cardiology progress note on 10/23/2016 states "JOCELYN on CKD" Clinical Findings Show: Creatinine: 3.6 Please clarify if you mean: Acute Renal Failure with or due to: [x] Tubular Necrosis [ ] Medullary Necrosis [ ] Vasomotor Nephropathy [ ] Shock Kidney [ ] Tubular Nephrosis [ ] Renal Tubular Stasis [ ] Cortical Necrosis [ ] Acute Renal Failure (unspecified) [ ] Lower Tubular Nephrosis [ ] Other: [ ] Not Applicable Present on Admission: [ x] Yes (Y) [ ] Clinically undeterminable (W) [ ] No (N) Please also document response in your Progress Notes and/or Discharge Summary and indicate if the condition was present on admission. SUJATA
[2016-10-23] MEDS: LEVEMIR SUB-Q SCH (22:21)
[2016-10-24 04:40] LABS: Hematocrit 24.3 % (35.5-45.6); Hemoglobin 7.9 gm/dl (11.8-15.2); Mean Corpuscular HGB Conc 32 % (32-34); Mean Corpuscular Hemoglobin 27 pg (28-32); Mean Corpuscular Volume 82 fl (84-94); Platelet Count 177 K/mm3 (140-440); Red Blood Count 2.95 M/mm3 (3.65-5.03); Red Cell Distribution Width 19.4 % (13.2-15.2)
[2016-10-24 04:46] LABS: BUN/Creatinine Ratio 18.12; Calcium 8.6 mg/dL (8.4-10.2); Chloride 103.1 mmol/L (98-107)
[2016-10-24] MEDS: NITRO-BID 2% TP SCH ×4 (06:09→18:52)
--- NOTE | 2016-10-24 09:53 | Progress Note ---
Assessment and Plan Assessment and plan: Acute diastolic heart failure. Continue Coreg, Lasix and Diovan. He feels better. He is sitting up in chair. Cardiology following Acute on Chronic kidney disease. Creatinine 3.2 today. Nephrology following Diabetes mellitus type 2. Check fingerstick glucose Qac and hs Hypertension., uncontrolled. Sleep apnea. CPAP QHS Morbid obesity. I counseled him on losing weight Anemia. Hgb 7.9 after 2 units PRBC transfused. Elevated Troponin likely due to CHF. Will monitor. Cardiology following Full code status Disposition:Likely d/c home tomorrow. Poor ambulation. PT evaluation ordered. History Interval history: Less shortness of breath, leg swelling poor ambulation Hospitalist Physical - Physical exam Narrative exam: Gen appearance: Not in acute distress, morbidly obese, sitting up in chair HEENT: normocephalic, atraumatic Neck: supple, Lungs: Lungs clear, no crackles, no wheezes Heart :S1 and S2 regular, no murmurs, rubs or gallop Abdomen: Soft, Non tender, non distended, bowel sounds present Extremities : Bilateral lower ext edema. no cyanosis, no clubbing, leg ulcer Neuro: AAO x 3, no focal neurological signs Psych:normal mood - Constitutional Vitals: Temp Pulse Resp BP Pulse Ox 97.6 F 52 L 20 171/75 100 10/24/16 05:03 10/24/16 05:03 10/24/16 05:03 10/24/16 05:03 10/24/16 05:03 General appearance: Present: no acute distress Results - Labs CBC & Chem 7: 10/24/16 04:17 10/24/16 04:17 Labs: Laboratory Last Values WBC 9.0 K/mm3 (4.5-11.0) 10/24/16 04:17 RBC 2.95 M/mm3 (3.65-5.03) L 10/24/16 04:17 Hgb 7.9 gm/dl (11.8-15.2) L 10/24/16 04:17 Hct 24.3 % (35.5-45.6) L 10/24/16 04:17 MCV 82 fl (84-94) L 10/24/16 04:17 MCH 27 pg (28-32) L 10/24/16 04:17 MCHC 32 % (32-34) 10/24/16 04:17 RDW 19.4 % (13.2-15.2) H 10/24/16 04:17 Plt Count 177 K/mm3 (140-440) 10/24/16 04:17 Lymph % (Auto) 14.8 % (13.4-35.0) 10/20/16 15:38 [place] % (Auto) 7.8 % (0.0-7.3) H 10/20/16 15:38 Eos % (Auto) 2.4 % (0.0-4.3) 10/20/16 15:38 Baso % (Auto) 0.9 % (0.0-1.8) 10/20/16 15:38 Lymph # 1.4 K/mm3 (1.2-5.4) 10/20/16 15:38 [place] # 0.7 K/mm3 (0.0-0.8) 10/20/16 15:38 Eos # 0.2 K/mm3 (0.0-0.4) 10/20/16 15:38 Baso # 0.1 K/mm3 (0.0-0.1) 10/20/16 15:38 Seg Neutrophils % 74.1 % (40.0-70.0) H 10/20/16 15:38 Seg Neutrophils # 6.9 K/mm3 (1.8-7.7) 10/20/16 15:38 Percent Retic 2.80 % (0.78-2.58) H 10/21/16 17:46 PT 15.0 Sec. (12.2-14.9) H 10/20/16 15:38 INR 1.12 (0.87-1.13) 10/20/16 15:38 APTT 31.5 Sec. (24.2-36.6) 10/20/16 15:38 Sodium 137 mmol/L (137-145) 10/24/16 04:17 Potassium 5.0 mmol/L (3.6-5.0) 10/24/16 04:17 Chloride 103.1 mmol/L (98-107) 10/24/16 04:17 Carbon Dioxide 21 mmol/L (22-30) L 10/24/16 04:17 Anion Gap 18 mmol/L 10/24/16 04:17 BUN 58 mg/dL (9-20) H 10/24/16 04:17 Creatinine 3.2 mg/dL (0.8-1.5) H 10/24/16 04:17 Estimated GFR 24 ml/min 10/24/16 04:17 BUN/Creatinine Ratio 18.12 % 10/24/16 04:17 Glucose 125 mg/dL (75-100) H 10/24/16 04:17 POC Glucose 97 (70-105) 10/24/16 07:47 Calcium 8.6 mg/dL (8.4-10.2) 10/24/16 04:17 Iron 26 ug/dL (49-181) L 10/23/16 09:25 TIBC 196 mcg/dL (250-450) L 10/23/16 09:25 % Saturation 12.87 % 10/21/16 17:46 Transferrin 172 mg/dl (180-329) L 10/21/16 17:46 Ferritin 206.9 ng/mL (13.0-400.0) 10/23/16 09:25 Total Bilirubin 0.20 mg/dL (0.1-1.2) 10/20/16 15:38 AST 10 units/L (5-40) 10/20/16 15:38 ALT 5 units/L (7-56) L 10/20/16 15:38 Alkaline Phosphatase 66 units/L (35-129) 10/20/16 15:38 Total Creatine Kinase 126 units/L (55-170) 10/21/16 06:21 CK-MB (CK-2) 2.0 ng/mL (0.0-4.0) 10/21/16 06:21 CK-MB (CK-2) Rel Index 1.5 (0-4) 10/21/16 06:21 Troponin T 0.040 ng/mL (0.00-0.029) H 10/21/16 06:21 NT-Pro-B Natriuret Pep 1954 pg/mL (0-900) H 10/20/16 15:38 Total Protein 6.8 g/dL (6.3-8.2) 10/20/16 15:38 Albumin 3.2 g/dL (3.9-5) L 10/20/16 15:38 Albumin/Globulin Ratio 0.9 % 10/20/16 15:38 Triglycerides 57 mg/dL (2-149) 10/20/16 15:38 Cholesterol 172 mg/dL (50-199) 10/20/16 15:38 LDL Cholesterol Direct 118 mg/dL (50-130) 10/20/16 15:38 HDL Cholesterol 43 mg/dL (40-59) 10/20/16 15:38 Cholesterol/HDL Ratio 4.00 % 10/20/16 15:38 Vitamin B12 606.8 pg/mL (211-911) 10/21/16 17:46 TSH 0.847 mlU/mL (0.270-4.200) 10/22/16 05:01 Thyroxine (T4) 4.6 ug/dL (4.0-12.0) 10/22/16 05:01 Blood Type O POSITIVE 10/20/16 22:16 Antibody Screen Negative 10/20/16 22:16 Crossmatch See Detail 10/20/16 22:16
[2016-10-24] MEDS: ULTRAM PO SCH ×3 (10:54→21:14)
[2016-10-24] MEDS: BABY ASPIRIN PO SCH (10:54)
[2016-10-24] MEDS: DIOVAN PO SCH (10:55)
[2016-10-24] MEDS: COREG PO SCH ×2 (10:57→21:15)
[2016-10-24] MEDS: VITAMIN D3 PO SCH (10:58)
[2016-10-24] MEDS: FEOSOL PO SCH ×2 (10:59→21:14)
[2016-10-24] MEDS: CATAPRES PO SCH ×3 (10:59→21:14)
[2016-10-24] MEDS: APRESOLINE PO SCH ×3 (10:59→21:14)
[2016-10-24] MEDS: VITAMIN C PO SCH (10:59)
[2016-10-24] MEDS: FLOMAX PO SCH (10:59)
[2016-10-24] MEDS: LASIX IV SCH ×2 (11:01→18:52)
--- NOTE | 2016-10-24 11:33 | Progress Note ---
Assessment and Plan Assessment: Acute diastolic heart failure - clinically improving. Accelerated HTN NSTEMI type II - flat and unchanged from prior admissions; pt denies chest pain ; ECG with NAF; recent negative stress test 07/2016; currently nonspecific in setting of accelerated HTN, acutely decompensated HF, and JOCELYN on CKD. JOCELYN on CKD Anemia - s/p PRBC tx; occult stool pending; suspected to be 2/2 chronic disease per nephrology; iron deficient with iron supplementation per primary. Intermittent sinus bradycardia - pt asymptomatic; suspect 2/2 ALEXANDER. Hypoalbuminemia ALEXANDER - PM CPAP Pulmonary HTN - RVSP 51mmHg on echo 07/2016 DM HLP PVD Plan: Cont present cardiac regimen. Wean O2 as tolerated. Further optimization of anti-hypertensive regimen per primary and nephrology. Possible discharge home in AM. Assessment and plan reviewed with pt at bedside. The patient has been seen in conjunction with Dr. Paz who agrees with the assessment and plan of care. Subjective Date of service: 10/24/16 Principal diagnosis: HF Interval history: Pt resting comfortably up in chair, BLE edema improving, SOB improving. BPs labile. on O2 via NC. s/p 2U PRBC tx yesterday. Objective Last Vital Signs Temp 97.6 F 10/24/16 05:03 Pulse 64 10/24/16 11:00 Resp 20 10/24/16 05:03 BP 199/88 10/24/16 10:59 Pulse Ox 100 10/24/16 10:34 - Physical Examination General: Appears Well, No Apparent Distress HEENT: Positive: PERRL, Normocephaly, Mucus Membranes Moist Neck: Positive: neck supple, trachea midline Cardiac: Positive: Reg Rate and Rhythm, S1/S2 Lungs: Positive: clear to auscultation Neuro: Positive: Grossly Intact, Cranial Nerve 2-12 Intact Abdomen: Positive: Active Bowel Sounds. Negative: Tender Skin: Positive: Other (LLE in dressing ) Musculoskeletal: Normal Range of Motion Extremities: Present: +2 Edema (BLE pitting) - Labs and Meds CBC 10/24/16 Range/Units 04:17 WBC 9.0 (4.5-11.0) K/mm3 RBC 2.95 L (3.65-5.03) M/mm3 Hgb 7.9 L (11.8-15.2) gm/dl Hct 24.3 L (35.5-45.6) % Plt Count 177 (140-440) K/mm3 Comprehensive Metabolic Panel 10/24/16 Range/Units 04:17 Sodium 137 (137-145) mmol/L Potassium 5.0 (3.6-5.0) mmol/L Chloride 103.1 (98-107) mmol/L Carbon Dioxide 21 L (22-30) mmol/L BUN 58 H (9-20) mg/dL Creatinine 3.2 H (0.8-1.5) mg/dL Glucose 125 H (75-100) mg/dL Calcium 8.6 (8.4-10.2) mg/dL - Imaging and Cardiology EKG: image reviewed Echo: report reviewed (08/13/2016: EF 65-70%, trace MR, trace TR) - EKG Sinus rhythms and dysrhythmias: sinus rhythm
--- NOTE | 2016-10-24 11:59 | Progress Note ---
Assessment and Plan Impression * Acute on chronic renal failure stage 4 * Hypertension * Metabolic acidosis * Anemia * Obesity * Diabetes * bradycardia * diastolic dysfunction Recommendations * cr 3.4 and stable today * His baseline creatinine is in the 3-4 range * He is currently nonoliguric * continue aggresive diuresis * strict i/os * daily lytes * Monitor fluid status and electrolytes closely * Avoid nephrotoxins * renal function is stable from renal standpoint Subjective Date of service: 10/24/16 Principal diagnosis: chf Interval history: resting in bed today Objective - Exam Narrative Exam: General: Alert awake nor acute distress HEENT: Oral mucosa moist no uremic order Neck: Supple no JVD Chest: bilateral crackles better Heart: Regular rate and rhythm S1-S2 heard Abdomen: Soft nontender Extremity: Dry skin edema approximately 2+ Neurological: Alert awake and oriented - Vital Signs Vital signs: Vital Signs - 12hr 10/24/16 10/24/16 10/24/16 00:19 05:03 10:34 Temperature 98.2 F 97.6 F Pulse Rate 55 L 52 L Respiratory 20 20 Rate Blood Pressure 120/57 171/75 O2 Sat by Pulse 100 100 100 Oximetry 10/24/16 10/24/16 10/24/16 10:55 10:57 10:59 Temperature Pulse Rate 64 64 64 Respiratory Rate Blood Pressure 199/88 199/88 199/88 O2 Sat by Pulse Oximetry 10/24/16 11:00 Temperature Pulse Rate 64 Respiratory Rate Blood Pressure O2 Sat by Pulse Oximetry - Lab 10/24/16 04:17 10/24/16 04:17 Most recent lab results Calcium 8.6 mg/dL (8.4-10.2) 10/24/16 04:17
--- NOTE | 2016-10-24 13:44 | XRay Report ---
Chest 2 views: Compared to 10/20/16. History: Shortness of breath. Findings: Marked cardiomegaly. Trachea is midline. No consolidation, pneumothorax or pleural effusion. Impression: Cardiomegaly. No acute lung changes.
--- NOTE | 2016-10-24 15:04 | Query- Renal Failure ---
Jj Ortiz____Sridhar Date:__10/24/2016 Stock Grader/CHIO:___Daija Phone#:___[phone] Exercise your independent professional judgment when responding to query. Questions asked do not imply a particular answer is desired or expected. We greatly appreciate your clarification on this issue. Clinical Documentation States: 61 Year old male was admitted on 10/20/2016 for increased shortness of breath and generalized swelling. The Nephrology progress note on 10/24/2016 states "Impression * Acute on chronic renal failure stage 4." Clinical Findings Show: Creatinine: 3.6 Please clarify if you mean: Acute Renal Failure with or due to: [ x] Tubular Necrosis [ ] Medullary Necrosis [ ] Vasomotor Nephropathy [ ] Shock Kidney [ ] Tubular Nephrosis [ ] Renal Tubular Stasis [ ] Cortical Necrosis [ ] Acute Renal Failure (unspecified) [ ] Lower Tubular Nephrosis [ ] Other: [ ] Not Applicable Present on Admission: [ x] Yes (Y) [ ] Clinically undeterminable (W) [ ] No (N) Please also document response in your Progress Notes and/or Discharge Summary and indicate if the condition was present on admission. RCD
[2016-10-24] MEDS: NORVASC PO SCH (18:52)
[2016-10-24] MEDS: LEVEMIR SUB-Q SCH (21:16)
[2016-10-24] MEDS: HEPARIN SUB-Q SCH (21:16)
[2016-10-25] MEDS: NITRO-BID 2% TP SCH ×4 (05:14→18:05)
[2016-10-25] MEDS: LASIX IV SCH ×2 (05:14→18:05)
[2016-10-25 06:38] LABS: BUN/Creatinine Ratio 18.23; Calcium 8.3 mg/dL (8.4-10.2); Chloride 103.9 mmol/L (98-107); Potassium 5.1 mmol/L (3.6-5.0)
[2016-10-25] MEDS ORDERED: D50W (25GM) Vial IV ONE (09:00)
[2016-10-25] MEDS: CATAPRES PO SCH ×2 (09:05→14:53)
[2016-10-25] MEDS: ULTRAM PO SCH ×2 (09:05→14:53)
[2016-10-25] MEDS: APRESOLINE PO SCH ×2 (09:05→14:53)
--- NOTE | 2016-10-25 10:30 | Progress Note ---
Assessment and Plan Acute diastolic heart failure - clinically improving. Accelerated HTN NSTEMI type II - flat and unchanged from prior admissions; pt denies chest pain ; ECG with NAF; recent negative stress test 07/2016; currently nonspecific in setting of accelerated HTN, acutely decompensated HF, and JOCELYN on CKD. JOCELYN on CKD Anemia - s/p PRBC tx; occult stool pending; suspected to be 2/2 chronic disease per nephrology; iron deficient with iron supplementation per primary. Intermittent sinus bradycardia - pt asymptomatic; suspect 2/2 ALEXANDER. Hypoalbuminemia ALEXANDER - PM CPAP Pulmonary HTN - RVSP 51mmHg on echo 07/2016 DM HLP PVD rec; decrease lasix to po and increase norvasc for better bp control and ambulate and pt may be discharge from [facility] point [facility] view if bp is stable Subjective Date of service: 10/25/16 Principal diagnosis: chf Interval history: pt sitting in bed and no chest pain or sob Objective Vital Signs Temp Pulse Resp BP Pulse Ox 10/25/16 09:05 18 193/88 10/25/16 08:54 98.5 F 63 18 193/88 94 10/25/16 05:34 98.2 F 50 L 18 162/72 100 10/25/16 00:34 99.4 F 54 L 20 150/67 99 10/24/16 23:00 58 L 18 97 10/24/16 22:00 53 L 10/24/16 20:52 100 10/24/16 20:34 97.7 F 63 18 176/77 97 10/24/16 15:36 168/77 10/24/16 15:35 168/77 10/24/16 13:00 52 L 10/24/16 11:00 64 10/24/16 10:59 64 199/88 10/24/16 10:57 64 199/88 10/24/16 10:55 64 199/88 10/24/16 10:34 100 - Physical Examination General: Appears Well, No Apparent Distress HEENT: Positive: PERRL, Normocephaly, Mucus Membranes Moist Neck: Positive: neck supple, trachea midline Cardiac: Positive: Reg Rate and Rhythm Lungs: Positive: clear to auscultation Neuro: Positive: Grossly Intact, Cranial Nerve 2-12 Intact Abdomen: Positive: Active Bowel Sounds. Negative: Tender Skin: Positive: Other (LLE in dressing ) Musculoskeletal: Normal Range of Motion Extremities: Absent: edema (trace and banaged in feet soles) - Labs and Meds Comprehensive Metabolic Panel 10/25/16 Range/Units 05:05 Sodium 137 (137-145) mmol/L Potassium 5.1 H (3.6-5.0) mmol/L Chloride 103.9 (98-107) mmol/L Carbon Dioxide 18 L (22-30) mmol/L BUN 62 H (9-20) mg/dL Creatinine 3.4 H (0.8-1.5) mg/dL Glucose 120 H (75-100) mg/dL Calcium 8.3 L (8.4-10.2) mg/dL - Imaging and Cardiology EKG: image reviewed Echo: report reviewed (08/13/2016: EF 65-70%, trace MR, trace TR) - Telemetry EKG Rhythm: Sinus Rhythm - EKG Sinus rhythms and dysrhythmias: sinus rhythm
[2016-10-25] MEDS ORDERED: NORVASC PO ONE (11:00)
[2016-10-25] MEDS: VITAMIN C PO SCH (11:09)
[2016-10-25] MEDS: BABY ASPIRIN PO SCH (11:09)
[2016-10-25] MEDS: ZAROXOLYN PO SCH (11:09)
[2016-10-25] MEDS: DIOVAN PO SCH (11:10)
[2016-10-25] MEDS: COREG PO SCH (11:10)
[2016-10-25] MEDS: VITAMIN D3 PO SCH (11:10)
[2016-10-25] MEDS: FLOMAX PO SCH (11:10)
[2016-10-25] MEDS: NORVASC PO SCH (11:17)
[2016-10-25] MEDS: FEOSOL PO SCH (11:17)
[2016-10-25] MEDS: HEPARIN SUB-Q SCH ×2 (11:23→11:26)
[2016-10-25] MEDS ORDERED: KIONEX PO NR (11:44)
[2016-10-25] MEDS ORDERED: SODIUM BICARBONATE PO SCH (12:00)
--- NOTE | 2016-10-25 17:35 | Discharge Summary ---
Providers - Providers Date of Admission: 10/20/16 21:57 Date of discharge: 10/25/16 Attending physician: LAMONT RICH 10/21/16 03:47 Consult to Wound/ET Nurse [CONS] Routine Reason For Exam: wound eval 10/21/16 06:00 Consult to Physician [CONS] Routine Consulting Provider: ROXANNE GUDINO Reason For Exam: CKD Place consult to:: ROXANNE GUDINO Notified:: Yenny AHMADI Phone number called:: Was contact made?: Yes If yes, spoke with:: Nancy-answering service Time called:: 08:44 10/21/16 12:49 Consult to Physician [CONS] Routine Consulting Provider: BRANDT LAMA Reason For Exam: CHF Place consult to:: Dr. Kathleen Lama Notified:: Yenny AHMADI 10/24/16 09:46 Physical Therapy Evaluation and Treat [CONS] Routine Comment: Reason For Exam: poor ambulation Primary care physician: MANAGER REPORTING Hospitalization Condition: Fair Disposition: DC-01 TO HOME OR SELFCARE Exam - Constitutional Vitals: Temp Pulse Resp BP Pulse Ox 98.3 F 61 18 135/63 96 10/25/16 12:14 10/25/16 14:53 10/25/16 15:53 10/25/16 14:53 10/25/16 12:14 Plan Activity: advance as tolerated Diet: low fat, low cholesterol, low salt Special Instructions: physical therapy, home health RN Additional Instructions: 1.Follow up with PCP in 1 week. 2.Follow up with Cardiology in 3-5 days. 3.Follow up with Nephrology in 1 week. 4.Ambulation with walker. 5.Decrease Lantus to 40 Units subcut Qhs Follow up with: PRIMARY CARE,MD [Primary Care Provider] - 3-5 Days Prescriptions: amLODIPine [Norvasc] 10 mg PO DAILY #30 tablet Carvedilol [Coreg] 3.125 mg PO BID #60 tablet Insulin Glargine,Hum.rec.anlog [Lantus Solostar] 40 units SQ QHS #1 pen
[2016-10-25 17:42] VITALS: BP 181/81
[2016-10-26] MEDS ORDERED: NORVASC PO SCH (10:00)
== END 2016-10-25 19:15 | disposition home or self-care (01) | DRG 280 ==
LOC: ED 14:44 → 4A 21:57
PROVIDERS: ADMIT Internal Medicine; ATTEND Internal Medicine
PROC: 5A09457 Assistance with Respiratory Ventilation, 24-96 Consecutive Hours, Continuous Positive Airway Pressure (ICD-10-PCS; principal; 2016-10-20)
PROC: 30233N1 Transfusion of Nonautologous Red Blood Cells into Peripheral Vein, Percutaneous Approach (ICD-10-PCS; principal; 2016-10-20)
DX: I21.4 Non-ST elevation (NSTEMI) myocardial infarction (principal); I50.31 Acute diastolic (congestive) heart failure; N17.0 Acute kidney failure with tubular necrosis; I13.0 Hypertensive heart and chronic kidney disease with heart failure and stage 1 through stage 4 chronic kidney disease, or unspecified chronic kidney disease; D64.9 Anemia, unspecified; I27.2 Other secondary pulmonary hypertension; E66.01 Morbid (severe) obesity due to excess calories; E11.22 Type 2 diabetes mellitus with diabetic chronic kidney disease; E11.51 Type 2 diabetes mellitus with diabetic peripheral angiopathy without gangrene; G47.33 Obstructive sleep apnea (adult) (pediatric); E78.5 Hyperlipidemia, unspecified; N18.4 Chronic kidney disease, stage 4 (severe); R00.1 Bradycardia, unspecified; Z71.3 Dietary counseling and surveillance; Z68.41 Body mass index [BMI] 40.0-44.9, adult
CPT/HCPCS: 36415; 71020; 80048; 80053; 80061; 82270; 82550; 82553; 82607; 82728; 82747; 82962; 83550; 83880; 84132; 84436; 84443; 84484; 85025; 85027; 85045; 85610; 85730; 86850; 86900; 86901; 86920; 93005; 93010; 94660; 94760; 96374; A9270-GY; J0885; J1644; J1815; J1818; J1940; J7040; P9016

== ENCOUNTER 2016-10-27 13:27 | Outpatient (CLI) | payer OTHER ==
[2016-10-27] MEDS ORDERED: XYLOCAINE TOPICAL 4% TP ONE ×2 (13:54→13:59)
== END 2016-10-27 13:28 | disposition home or self-care (01) ==
LOC: WOUND 13:27
PROVIDERS: ATTEND Internal Medicine
DX: T81.89XD Other complications of procedures, not elsewhere classified, subsequent encounter (principal); I87.312 Chronic venous hypertension (idiopathic) with ulcer of left lower extremity; E11.621 Type 2 diabetes mellitus with foot ulcer; L97.521 Non-pressure chronic ulcer of other part of left foot limited to breakdown of skin; E11.22 Type 2 diabetes mellitus with diabetic chronic kidney disease; I12.9 Hypertensive chronic kidney disease with stage 1 through stage 4 chronic kidney disease, or unspecified chronic kidney disease; N18.4 Chronic kidney disease, stage 4 (severe); I89.0 Lymphedema, not elsewhere classified; M19.90 Unspecified osteoarthritis, unspecified site; Y83.8 Other surgical procedures as the cause of abnormal reaction of the patient, or of later complication, without mention of misadventure at the time of the procedure

== ENCOUNTER 2016-11-05 13:23 | Outpatient (CLI) | payer OTHER ==
[2016-11-05] MEDS ORDERED: XYLOCAINE TOPICAL 2% ONE (14:25)
[2016-11-05] MEDS ORDERED: XYLOCAINE TOPICAL 2% TP ONE (14:27)
== END 2016-11-05 13:24 | disposition home or self-care (01) ==
LOC: WOUND 13:23
PROVIDERS: ATTEND Surgery
DX: I87.312 Chronic venous hypertension (idiopathic) with ulcer of left lower extremity (principal); E11.622 Type 2 diabetes mellitus with other skin ulcer; L97.821 Non-pressure chronic ulcer of other part of left lower leg limited to breakdown of skin; E11.22 Type 2 diabetes mellitus with diabetic chronic kidney disease; I12.9 Hypertensive chronic kidney disease with stage 1 through stage 4 chronic kidney disease, or unspecified chronic kidney disease; N18.4 Chronic kidney disease, stage 4 (severe); I89.0 Lymphedema, not elsewhere classified
CPT/HCPCS: 29581

== ENCOUNTER 2016-11-07 13:49 | Outpatient (CLI) | payer OTHER | END 2016-11-07 13:50 | disposition home or self-care (01) | LOC: WOUND 13:49 | PROVIDERS: ATTEND Podiatrist | DX: I87.313 Chronic venous hypertension (idiopathic) with ulcer of bilateral lower extremity (principal); E11.622 Type 2 diabetes mellitus with other skin ulcer; L97.821 Non-pressure chronic ulcer of other part of left lower leg limited to breakdown of skin; L97.811 Non-pressure chronic ulcer of other part of right lower leg limited to breakdown of skin; E11.22 Type 2 diabetes mellitus with diabetic chronic kidney disease; I12.9 Hypertensive chronic kidney disease with stage 1 through stage 4 chronic kidney disease, or unspecified chronic kidney disease; N18.4 Chronic kidney disease, stage 4 (severe); I89.0 Lymphedema, not elsewhere classified | CPT/HCPCS: 29581 ==

== ENCOUNTER 2016-11-14 09:23 | Outpatient (CLI) | payer OTHER ==
[2016-11-14] MEDS ORDERED: XYLOCAINE TOPICAL 4% TP ONE (10:02)
== END 2016-11-14 09:24 | disposition home or self-care (01) ==
LOC: WOUND 09:23
PROVIDERS: ATTEND Podiatrist
DX: T81.89XD Other complications of procedures, not elsewhere classified, subsequent encounter (principal); I87.312 Chronic venous hypertension (idiopathic) with ulcer of left lower extremity; E11.621 Type 2 diabetes mellitus with foot ulcer; L97.521 Non-pressure chronic ulcer of other part of left foot limited to breakdown of skin; E11.622 Type 2 diabetes mellitus with other skin ulcer; L97.811 Non-pressure chronic ulcer of other part of right lower leg limited to breakdown of skin; E11.22 Type 2 diabetes mellitus with diabetic chronic kidney disease; I12.9 Hypertensive chronic kidney disease with stage 1 through stage 4 chronic kidney disease, or unspecified chronic kidney disease; N18.4 Chronic kidney disease, stage 4 (severe); I89.0 Lymphedema, not elsewhere classified; Y83.8 Other surgical procedures as the cause of abnormal reaction of the patient, or of later complication, without mention of misadventure at the time of the procedure
CPT/HCPCS: 29581

== ENCOUNTER 2016-11-17 12:57 | Outpatient (CLI) | payer OTHER ==
[2016-11-17] MEDS ORDERED: XYLOCAINE TOPICAL 4% TP ONE (13:43)
== END 2016-11-17 12:58 | disposition home or self-care (01) ==
LOC: WOUND 12:57
PROVIDERS: ATTEND Surgery
DX: I87.313 Chronic venous hypertension (idiopathic) with ulcer of bilateral lower extremity (principal); E11.622 Type 2 diabetes mellitus with other skin ulcer; L97.821 Non-pressure chronic ulcer of other part of left lower leg limited to breakdown of skin; L97.811 Non-pressure chronic ulcer of other part of right lower leg limited to breakdown of skin; E11.621 Type 2 diabetes mellitus with foot ulcer; L97.521 Non-pressure chronic ulcer of other part of left foot limited to breakdown of skin; E11.22 Type 2 diabetes mellitus with diabetic chronic kidney disease; I12.9 Hypertensive chronic kidney disease with stage 1 through stage 4 chronic kidney disease, or unspecified chronic kidney disease; N18.4 Chronic kidney disease, stage 4 (severe); I89.0 Lymphedema, not elsewhere classified
CPT/HCPCS: 11055; 11719; G0463; 29581

== ENCOUNTER 2016-11-24 13:08 | Outpatient (CLI) | payer OTHER | END 2016-11-24 13:09 | disposition home or self-care (01) | LOC: WOUND 13:08 | PROVIDERS: ATTEND Internal Medicine | DX: I87.313 Chronic venous hypertension (idiopathic) with ulcer of bilateral lower extremity (principal); E11.622 Type 2 diabetes mellitus with other skin ulcer; L97.821 Non-pressure chronic ulcer of other part of left lower leg limited to breakdown of skin; L97.811 Non-pressure chronic ulcer of other part of right lower leg limited to breakdown of skin; E11.22 Type 2 diabetes mellitus with diabetic chronic kidney disease; I12.9 Hypertensive chronic kidney disease with stage 1 through stage 4 chronic kidney disease, or unspecified chronic kidney disease; N18.9 Chronic kidney disease, unspecified; I89.0 Lymphedema, not elsewhere classified | CPT/HCPCS: 29581; G0463; 99212 ==

== ENCOUNTER 2016-12-08 13:12 | Outpatient (CLI) | payer MEDICARE, OTHER | END 2016-12-08 13:13 | disposition home or self-care (01) | LOC: WOUND 13:12 | PROVIDERS: ATTEND Internal Medicine | DX: I87.312 Chronic venous hypertension (idiopathic) with ulcer of left lower extremity (principal); L97.821 Non-pressure chronic ulcer of other part of left lower leg limited to breakdown of skin; E11.22 Type 2 diabetes mellitus with diabetic chronic kidney disease; I12.9 Hypertensive chronic kidney disease with stage 1 through stage 4 chronic kidney disease, or unspecified chronic kidney disease; N18.4 Chronic kidney disease, stage 4 (severe); I89.0 Lymphedema, not elsewhere classified | CPT/HCPCS: 11721; 29581; G0463 ==

== ENCOUNTER 2016-12-15 12:59 | Outpatient (CLI) | payer MEDICARE, OTHER | END 2016-12-15 13:00 | disposition home or self-care (01) | LOC: WOUND 12:59 | PROVIDERS: ATTEND Internal Medicine | DX: I87.312 Chronic venous hypertension (idiopathic) with ulcer of left lower extremity (principal); E11.622 Type 2 diabetes mellitus with other skin ulcer; L97.821 Non-pressure chronic ulcer of other part of left lower leg limited to breakdown of skin; N40.1 Benign prostatic hyperplasia with lower urinary tract symptoms; E11.22 Type 2 diabetes mellitus with diabetic chronic kidney disease; I12.9 Hypertensive chronic kidney disease with stage 1 through stage 4 chronic kidney disease, or unspecified chronic kidney disease; N18.4 Chronic kidney disease, stage 4 (severe); I89.0 Lymphedema, not elsewhere classified | CPT/HCPCS: 99212; G0463 ==

== ENCOUNTER 2017-01-12 13:07 | Outpatient (CLI) | payer MEDICARE, OTHER | END 2017-01-12 13:08 | disposition home or self-care (01) | LOC: WOUND 13:07 | PROVIDERS: ATTEND Internal Medicine | DX: I87.312 Chronic venous hypertension (idiopathic) with ulcer of left lower extremity (principal); L97.821 Non-pressure chronic ulcer of other part of left lower leg limited to breakdown of skin; S91.301A Unspecified open wound, right foot, initial encounter; M79.672 Pain in left foot; E11.22 Type 2 diabetes mellitus with diabetic chronic kidney disease; I13.10 Hypertensive heart and chronic kidney disease without heart failure, with stage 1 through stage 4 chronic kidney disease, or unspecified chronic kidney disease; N18.4 Chronic kidney disease, stage 4 (severe); I10 Essential (primary) hypertension; X58.XXXA Exposure to other specified factors, initial encounter; Y93.89 Activity, other specified; Y92.89 Other specified places as the place of occurrence of the external cause; Y99.8 Other external cause status | CPT/HCPCS: 11055; 97597 ==

== ENCOUNTER 2017-01-19 09:03 | Day surgery (SDC) | payer MEDICARE, OTHER ==
[~2017-01-19 09:03] MED LIST: WATER FOR IRRIG STERILE IR ONE; WATER FOR IRRIG STERILE ONE
[2017-01-19] MEDS ORDERED: DIPRIVAN 10 MG/ML IV ONE ×2 (09:16)
--- NOTE | 2017-01-19 09:50 | Short Stay Summary ---
Short Stay Documentation Date of service: 01/19/17 Narrative H&P: 61 year old presents for colonoscopy for colon screening. - History Principal diagnosis: colon screening Past Medical History: diabetes, hypertension, renal failure, other (AL[place]ANDER, obesity ) Past Surgical History: appendectomy, Other (colonoscopy) Social history: no smoking, no alcohol abuse - Allergies and Medications Current Medications: Allergies No Known Allergies Allergy (Unverified 03/09/15 08:34) Home Medications Medication Instructions Recorded Confirmed Last Taken Type Furosemide [Lasix TAB] 40 mg PO BID 08/11/16 10/20/16 Unknown History Valsartan [Diovan] 320 mg PO QDAY 08/11/16 10/20/16 Unknown History Bisacodyl [Dulcolax suppos] 10 mg AL QDAY PRN #30 supp.rect 08/19/16 10/20/16 Unknown Rx Clonidine HCl [Kapvay] 0.2 mg PO TID #90 tab.er.12h 08/19/16 10/20/16 Unknown Rx Ferrous Sulfate [Feosol 325 MG tab] 325 mg PO BID #60 tablet 08/19/16 10/20/16 Unknown Rx Metolazone [Zaroxolyn] 5 mg PO Q48H #15 tablet 08/19/16 10/20/16 Unknown Rx Polyethylene Glycol 3350 [Miralax 17 gm PO QDAY PRN #30 powd.pack 08/19/1610/20 Unknown Rx 3350] hydrALAZINE [Apresoline TAB] 100 mg PO TID #90 tab 08/19/16 10/20/16 Unknown Rx oxyCODONE /ACETAMINOPHEN [Percocet 1 tab PO Q4HR #25 tab 08/19/16 10/20/16 Unknown Rx 5/325 mg] Ascorbic Acid [Vitamin C] 500 mg PO QDAY 10/20/16 10/20/16 Unknown History AtorvaSTATin [Lipitor] 20 mg PO QDAY 10/20/16 10/20/16 Unknown History Cholecalciferol (Vitamin D3) 2,000 units PO QDAY 10/20/16 10/20/16 Unknown History [Vitamin D3 2,000 unit] Multivit-Min/Iron/FA/P.ginseng [Ra 1 tab PO QDAY 10/20/16 10/20/16 Unknown History [employer] Tablet] Tamsulosin [Flomax] 0.4 mg PO QDAY 10/20/16 10/20/16 Unknown History Zinc Acetate [Galzin] 50 mg PO QDAY 10/20/16 10/20/16 Unknown History traMADol [Ultram 50 MG tab] 50 mg PO TID 10/20/16 10/20/16 Unknown History Carvedilol [Coreg] 3.125 mg PO BID #60 tablet 10/25/16 Unknown Rx Insulin Glargine,Hum.rec.anlog 40 units SQ QHS #1 pen 10/25/16 Unknown Rx [Lantus Solostar] amLODIPine [Norvasc] 10 mg PO DAILY #30 tablet 10/25/16 Unknown Rx - Physical exam General appearance: no acute distress, well-nourished HEENT: PERRLA, EOMI Lungs: Clear to auscultation Heart: Regular rate, Normal S1, Normal S2 Gastrointestinal: normal, obese Neurological: Normal speech - Hospital course Hospital course: Uneventful colonoscopy.0 - Disposition Condition at discharge: Good Disposition: DC-01 TO HOME OR SELFCARE - Discharge Diagnoses (1) Encounter for screening colonoscopy for [id number] patient Status: Acute (2) Diverticulosis Status: Acute (3) Internal hemorrhoids Status: Acute Short Stay Discharge Plan Activity: other (no driving today) Diet: other (resume usual diet) Additional Instructions: Repeat colonoscopy in 2 years using enhanced prep. Follow up with: CONSTANTINO SANDOVAL MD [Primary Care Provider] - 7 Days
[2017-01-19] MEDS ORDERED: NACL 0.9% 1000 ML 1,000 ML IV SCH (11:00)
--- NOTE | 2017-01-19 11:48 | Anesthesia Consultation ---
Anesthesia Consult and Med Hx Date of service: 01/19/17 - Pulmonary Exam CTA: Yes - Cardiac Exam Cardiac Exam: RRR - Pre-Operative Health Status ASA Pre-Surgery Classification: ASA3 Proposed Anesthetic Plan: MAC - Pulmonary Hx Smoking: No Hx Sleep Apnea: Yes (Cpap) - Cardiovascular System Hx Hypertension: Yes - Gastrointestinal Hx Gastroesophageal Reflux Disease: No - Endocrine Hx Renal Disease: Yes (CKDIII) Hx Insulin Dependent Diabetes: Yes - Other Systems Hx Cancer: No Hx Obesity: Yes ([place]) - Additional Comments Anesthesia Medical History Comments: NAC
--- NOTE | 2017-01-19 11:49 | Anesthesia Day of Surgery ---
Anesthesia Day of Surgery - Day of Surgery Patient Examined: Yes Patient H&P Reviewed: Yes Patient is NPO: Yes
[2017-01-19] MEDS ORDERED: WATER FOR IRRIG STERILE IR ONE (11:54)
--- NOTE | 2017-01-19 12:21 | Operative Report ---
Operative Report Operative Report: Date of procedure: 01/27/2017 Preprocedure diagnosis: Average risk colon screening Post procedure diagnosis: Diverticulosis, internal hemorrhoids, suboptimal prep Procedure name(s): Colonoscopy Surgeon: Juwan Maldonado MD Anesthesia: Monitored anesthesia care EBL: None Procedure: The indications, techniques, potential complications and alternatives , had been discussed in full detail prior to the date of the exam, and once again on the day of the exam. Questions were encouraged and answered, and consent was thereby obtained. The patient was placed in the left lateral decubitus position, and was medicated by anesthesia services. See the anesthesia records for details. The anal sphincter was digitally dilated. The digital exam was unremarkable. The tip of a [employer] video colonoscope was inserted through the anal sphincter and into the rectal vault. It was then advanced proximally under continuous visualization of the lumen to the cecum without difficulty. The prep was only fair, and had been least effective in the cecum and ascending colon. Frequent lavage and suctioning were employed to improve mucosal visibility. Within limitations of the prep, no pathology was seen in the cecum. The appendiceal orifice was partially obscured were visible. The ileocecal valve appeared normal. From the cecum the antrum was slowly withdrawn with careful circumferential examination of the mucosa, with lavage frequently as needed. No pathology was found in the ascending colon, hepatic flexure, transverse colon , splenic flexure or descending colon. Mild diverticulosis was noted in the sigmoid. The rectum appeared normal from the forward view. Retroflexion in the rectum revealed prominent nonbleeding internal hemorrhoids. The instrument was fully withdrawn. The procedure was very well tolerated. Post procedure he was monitored in the recovery area of the GI lab to ensure stability prior to his release. See the outpatient record for details regarding instructions to patient, medications and plans for follow-up. Final diagnosis: 1. Sigmoid diverticulosis 2. Internal hemorrhoids 3. Otherwise grossly normal exam to the cecum within limitations of the prep, cannot rule out missed pathology such as small neoplastic lesions, flat or depressed pathology, aberrations of fine mucosal detail or other subtle pathology, due to quality of prep. For this reason repeat colonoscopy has been recommended to be performed within the next 2 years using an enhanced prep. Colon screening information: Previous colonoscopy greater than 10 years ago, next recommended colonoscopy within 2 years. Juwan Maldonado M.D. Dictated 01/19/2017 at 12:18 PM
[2017-01-19 12:24] VITALS: BP 157/78
--- NOTE | 2017-01-19 14:56 | Post Anesthesia Evaluation ---
- Post Anesthesia Evaluation Patient Participated: Yes Airway Patent: Yes Stable Respiratory Function: Yes Nausea/Vomiting: No Temp > 96.8F: Yes Pain Manageable: Yes Adequeate Hydration: Yes Anesthesia Complications: No Block Receding Appropriately: Not Applicable Patient on Ventilator: No
== END 2017-01-19 09:04 | disposition home or self-care (01) ==
LOC: GIO 09:03
PROVIDERS: ATTEND Internal Medicine Gastroenterology
DX: Z12.11 Encounter for screening for malignant neoplasm of colon (principal); K57.30 Diverticulosis of large intestine without perforation or abscess without bleeding; K64.8 Other hemorrhoids; G47.33 Obstructive sleep apnea (adult) (pediatric); E11.22 Type 2 diabetes mellitus with diabetic chronic kidney disease; I12.9 Hypertensive chronic kidney disease with stage 1 through stage 4 chronic kidney disease, or unspecified chronic kidney disease; N18.3 Chronic kidney disease, stage 3 (moderate); E66.01 Morbid (severe) obesity due to excess calories; Z79.899 Other long term (current) drug therapy; Z79.4 Long term (current) use of insulin; Z99.89 Dependence on other enabling machines and devices; Z83.3 Family history of diabetes mellitus
CPT/HCPCS: 45378; J2704; J7030

== ENCOUNTER 2017-02-16 12:57 | Outpatient (CLI) | payer MEDICARE ==
[2017-02-16] MEDS ORDERED: XYLOCAINE TOPICAL 4% TP ONE (13:13)
[2017-02-16] MEDS ORDERED: SILVER NITRATE TP ONE (13:54)
[2017-02-18] MEDS ORDERED: SILVER NITRATE TP ONE (16:05)
== END 2017-02-16 12:58 | disposition home or self-care (01) ==
LOC: WOUND 12:57
PROVIDERS: ATTEND Internal Medicine
DX: E11.621 Type 2 diabetes mellitus with foot ulcer (principal); L97.511 Non-pressure chronic ulcer of other part of right foot limited to breakdown of skin; I87.2 Venous insufficiency (chronic) (peripheral); B35.1 Tinea unguium; I12.9 Hypertensive chronic kidney disease with stage 1 through stage 4 chronic kidney disease, or unspecified chronic kidney disease; E11.22 Type 2 diabetes mellitus with diabetic chronic kidney disease; N18.4 Chronic kidney disease, stage 4 (severe); I89.0 Lymphedema, not elsewhere classified

== ENCOUNTER 2017-02-19 14:39 | Outpatient (CLI) | payer MEDICARE | END 2017-02-19 14:40 | disposition home or self-care (01) | LOC: WOUND 14:39 | PROVIDERS: ATTEND Nurse Practitioner | DX: E11.621 Type 2 diabetes mellitus with foot ulcer (principal); L97.511 Non-pressure chronic ulcer of other part of right foot limited to breakdown of skin; I12.9 Hypertensive chronic kidney disease with stage 1 through stage 4 chronic kidney disease, or unspecified chronic kidney disease; E11.22 Type 2 diabetes mellitus with diabetic chronic kidney disease; N18.4 Chronic kidney disease, stage 4 (severe); I89.0 Lymphedema, not elsewhere classified | CPT/HCPCS: 29581; G0463; 99213 ==

== ENCOUNTER 2017-02-24 13:23 | Outpatient (CLI) | payer MEDICARE ==
[2017-02-24] MEDS ORDERED: XYLOCAINE TOPICAL 2% 5ML ONE (14:14)
[2017-02-24] MEDS ORDERED: XYLOCAINE TOPICAL 2% 5ML TP ONE (16:25)
== END 2017-02-24 13:24 | disposition home or self-care (01) ==
LOC: WOUND 13:23
PROVIDERS: ATTEND Internal Medicine
DX: E11.621 Type 2 diabetes mellitus with foot ulcer (principal); L97.511 Non-pressure chronic ulcer of other part of right foot limited to breakdown of skin; I12.9 Hypertensive chronic kidney disease with stage 1 through stage 4 chronic kidney disease, or unspecified chronic kidney disease; N18.4 Chronic kidney disease, stage 4 (severe); I89.0 Lymphedema, not elsewhere classified
CPT/HCPCS: 29581

== ENCOUNTER 2017-03-09 12:58 | Outpatient (CLI) | payer MEDICARE ==
[2017-03-09] MEDS ORDERED: XYLOCAINE TOPICAL 4% TP ONE (13:19)
== END 2017-03-09 12:59 | disposition home or self-care (01) ==
LOC: WOUND 12:58
PROVIDERS: ATTEND Internal Medicine
DX: E10.622 Type 1 diabetes mellitus with other skin ulcer (principal); I87.2 Venous insufficiency (chronic) (peripheral); L97.811 Non-pressure chronic ulcer of other part of right lower leg limited to breakdown of skin; E10.22 Type 1 diabetes mellitus with diabetic chronic kidney disease; I12.9 Hypertensive chronic kidney disease with stage 1 through stage 4 chronic kidney disease, or unspecified chronic kidney disease; N18.4 Chronic kidney disease, stage 4 (severe); I89.0 Lymphedema, not elsewhere classified
CPT/HCPCS: 99214; G0463

== ENCOUNTER 2017-03-09 14:23 | Emergency (ER) | payer MEDICARE | END 2017-03-09 14:24 | disposition left against medical advice (07) | LOC: ED 14:23 | DX: Z53.21 Procedure and treatment not carried out due to patient leaving prior to being seen by health care provider (principal) ==